=== PATIENT | male | born 1975 | race Caucasian/White ===

== ENCOUNTER 2020-10-17 12:38 | Emergency (ER) | payer OTHER ==
[2020-10-17] MEDS ORDERED: TYLENOL 325 MG PO ONE (13:00)
[2020-10-17] MEDS ORDERED: Sodium Chloride 0.9% 1000 ML 1,000 ML IV STA (13:00)
[2020-10-17] MEDS ORDERED: Inapsine 5 MG/2 ML IV ONE (13:00)
[2020-10-17] MEDS ORDERED: BENADRYL 50 MG/ML IV ONE (13:00)
[2020-10-17] MEDS ORDERED: Reglan 10 MG/2 ML IV ONE (13:00)
[2020-10-17] MEDS ORDERED: Inapsine 5 MG/2 ML ONE (13:06)
[2020-10-17] MEDS ORDERED: Sodium Chloride 0.9% 1000 ML 1,000 ML ONE (13:06)
[2020-10-17] MEDS ORDERED: Reglan 10 MG/2 ML ONE (13:06)
[2020-10-17] MEDS ORDERED: TYLENOL 325 MG ONE (13:06)
[2020-10-17] MEDS ORDERED: BENADRYL 50 MG/ML ONE (13:06)
[2020-10-17 13:47] LABS: Hematocrit 46.6 % (42-50); Mean Cell Volume 87.9 fl (78-100); Mean Corpuscular Hemoglobin 30.2 pg (26-32); Mean Corpuscular Hgb Concent. 34.3 g/dl (32-36); Mean Platelet Volume 9.6 fl (7.5-11.0); Platelet Count 229 K/mm3 (150-450); White Blood Count 7.8 K/mm3 (4.0-10.5)
--- NOTE | 2020-10-17 13:56 | XRAY ---
Indication: Cough. Comparison: None Portable chest demonstrates moderate left perihilar and minimal right perihilar airspace disease without consolidation/large effusion. Remaining heart and bony thorax normal.
--- NOTE | 2020-10-17 14:01 | ERPHSYRPT ---
- History of Present Illness Time Seen by Provider: 10/17/20 12:41 Source: patient Exam Limitations: no limitations Patient Subjective Stated Complaint: pt here for headache and low grade fever, headache for a week,he was sent from [facility]. pt states he is sure he has c ovid 2 weeks ago,because hes son had it Triage Nursing Assessment: pt alert, walked in, resp easy, skin w/d/p. pt moaning out with pain. deneis any injury, Physician History: 45 years old fairly healthy male presented in the ER with chief complaint of headache along with generalized body aches, fatigue and tiredness for 2 weeks. Patient report he has a positive contact with known COVID-19 but has never been tested. He has been feeling horrible for the last 2 weeks and lately his headache is getting worse. Reports throbbing headache, moderate to severe intensity all over without any significant aggravating or relieving factors. Denies any visual disturbance, numbness tingling or focal weakness. Does have minimal nonproductive cough and occasionally gets short of breath with activity since start of his illness. Aches and pains all over with nausea at times. Patient reports not being tested for Covid before and today started to have low- grade fever as well. No difficulty movements of neck. Timing/Duration: week(s) (2), constant, gradual onset Severity: moderate Associated Symptoms: nausea, fever, headaches, weakness Allergies/Adverse Reactions: amoxicillin Allergy (Verified 10/17/20 12:52) Hx Influenza Vaccination/Date Given: No Hx Pneumococcal Vaccination/Date Given: No Immunizations Up to Date: Yes Travel Risk - International Travel Have you traveled outside of the country in past 3 weeks: No - Coronavirus Screening Are you exhibiting any of the following symptoms?: Yes Symptoms: Fever, Cough: New Onset, Headaches/Body Aches/Fatigue Close contact with a COVID-19 positive Pt in past 14-21 Days: Yes - Vaccine Status Have you recieved a Covid-19 vaccination: No - Review of Systems Constitutional: Fever, Fatigue, Weakness Eyes: No Symptoms Ears, Nose, & Throat: Nose Congestion Respiratory: Cough, Dyspnea, Wheezing Abdominal/Gastrointestinal: Nausea, Vomiting Genitourinary Symptoms: No Symptoms Musculoskeletal: Myalgias Skin: No Symptoms Neurological: Headache Psychological: No Symptoms Endocrine: No Symptoms Hematologic/Lymphatic: No Symptoms Immunological/Allergic: No Symptoms - Past Medical History Pertinent Past Medical History: No - Past Surgical History Past Surgical History: No - Social History Smoking Status: Former smoker Exposure to second hand smoke: No Drug Use: none Patient Lives Alone: No - Nursing Vital Signs Nursing Vital Signs: Initial Vital Signs Temperature 99.9 F 10/17/20 12:46 Pulse Rate 105 H 10/17/20 12:46 Respiratory Rate 18 10/17/20 12:46 Blood Pressure 156/91 10/17/20 12:46 O2 Sat by Pulse Oximetry 99 10/17/20 12:46 Pain Scale Pain Intensity 10 - Physical Exam General Appearance: no apparent distress, alert Eye Exam: PERRL/EOMI, eyes nml inspection Ears, Nose, Throat Exam: pharyngeal erythema Neck Exam: normal inspection, non-tender, supple, full range of motion, No meningismus Respiratory Exam: normal breath sounds, lungs clear Cardiovascular Exam: regular rate/rhythm, normal heart sounds Gastrointestinal/Abdomen Exam: soft, normal bowel sounds, No tenderness Back Exam: normal inspection, normal range of motion Extremity Exam: normal inspection, normal range of motion, pelvis stable Neurologic Exam: alert, oriented x 3, cooperative, power system electrical engineer II-XII nml as tested, normal mood/affect, nml cerebellar function, nml station & gait, sensation nml, No motor deficits, No sensory deficit Skin Exam: normal color SpO2 Interpretation: normal SpO2: 99 O2 Delivery: Room Air Ordered Tests: Active Orders 24 hr Category Date Time Status Founder And President STAT Care 10/17/20 13:01 Active IV Insertion STAT Care 10/17/20 13:00 Active IV Insertion STAT Care 10/17/20 13:03 Active CHEST 1 VIEW (PORTABLE) Stat Exams 10/17/20 13:46 Completed HEAD WITHOUT CONTRAST [CT] Stat Exams 10/17/20 13:01 Completed BLOOD CULTURE Stat Lab 10/17/20 13:15 Received CBC W DIFF Stat Lab 10/17/20 12:45 Completed CMP Stat Lab 10/17/20 12:45 Completed Lactic Acid Urgent Lab 10/17/20 13:00 Completed Manual Differential NC Stat Lab 10/17/20 12:45 Completed UA W/RFX UR CULTURE Stat Lab 10/17/20 14:41 Completed Medication Summary Discontinued Medications Generic Name Dose Route Start Last Admin Trade Name Freq PRN Reason Stop Dose Admin Acetaminophen 975 mg 10/17/20 13:00 10/17/20 13:16 Tylenol 325 Mg PO 10/17/20 13:01 975 mg STAT ONE Administration Acetaminophen Confirm 10/17/20 13:06 Tylenol 325 Mg Administered 10/17/20 13:07 Dose 975 mg .ROUTE .STK-MED ONE Dexamethasone Sodium Phosphate 6 mg 10/17/20 15:14 10/17/20 15:50 Decadron 10mg Inj. IV 10/17/20 15:15 6 mg STAT ONE Administration Dexamethasone Sodium Phosphate Confirm 10/17/20 15:48 Decadron 10mg Inj. Administered 10/17/20 15:49 Dose 10 mg .ROUTE .STK-MED ONE Diphenhydramine HCl 25 mg 10/17/20 13:00 10/17/20 13:14 Benadryl 50 Mg/Ml IV 10/17/20 13:01 25 mg STAT ONE Administration Diphenhydramine HCl Confirm 10/17/20 13:06 Benadryl 50 Mg/Ml Administered 10/17/20 13:07 Dose 50 mg .ROUTE .STK-MED ONE Droperidol 1.25 mg 10/17/20 13:00 10/17/20 13:10 Inapsine 5 Mg/2 Ml IV 10/17/20 13:01 1.25 mg STAT ONE Administration Droperidol Confirm 10/17/20 13:06 Inapsine 5 Mg/2 Ml Administered 10/17/20 13:07 Dose 5 mg .ROUTE .STK-MED ONE Sodium Chloride 1,000 mls @ 999 mls/hr 10/17/20 13:00 10/17/20 14:24 Sodium Chloride 0.9% 1000 Ml IV 10/17/20 14:00 Infused .Q1H1M STA Infusion Sodium Chloride Confirm 10/17/20 13:06 Sodium Chloride 0.9% 1000 Ml Administered 10/17/20 13:07 Dose 1,000 mls @ ud .ROUTE .STK-MED ONE Azithromycin 500 mg in 250 mls @ 250 mls/hr 10/17/20 15:13 10/17/20 16:35 Zithromax 500 Mg/ 250 Ml Nacl Premix IV 10/17/20 16:12 250 mls/hr STAT STA 250 mls/hr Administration Ceftriaxone Sodium/Dextrose 2 g in 50 mls @ 100 mls/hr 10/17/20 15:13 10/17/20 16:36 Rocephin 2 Gm-D5w 50ml Bag IV 10/17/20 15:42 Infused STAT STA Infusion Azithromycin Confirm 10/17/20 15:48 Zithromax 500 Mg/ 250 Ml Nacl Premix Administered 10/17/20 15:49 Dose 500 mg in 250 mls @ ud IV .STK-MED ONE Ceftriaxone Sodium/Dextrose Confirm 10/17/20 15:48 Rocephin 2 Gm-D5w 50ml Bag Administered 10/17/20 15:49 Dose 2 g in 50 mls @ ud IV .STK-MED ONE Metoclopramide HCl 10 mg 10/17/20 13:00 10/17/20 13:13 Reglan 10 Mg/2 Ml IV 10/17/20 13:01 10 mg STAT ONE Administration Metoclopramide HCl Confirm 10/17/20 13:06 Reglan 10 Mg/2 Ml Administered 10/17/20 13:07 Dose 10 mg .ROUTE .STK-MED ONE Lab/Rad Data: Laboratory Result Diagrams 10/17/20 12:45 10/17/20 12:45 Laboratory Results 10/17/20 10/17/20 10/17/20 Range/Units 14:41 13:00 12:45 WBC (4.0-10.5) K/mm3 RBC (4.1-5.6) M/mm3 Hgb (12.5-18.0) gm/dl Hct (42-50) % MCV (78-100) fl MCH (26-32) pg MCHC (32-36) g/dl RDW (11.5-14.0) % Plt Count (150-450) K/mm3 MPV (7.5-11.0) fl Absolute Granulocytes (1.4-6.9) Segmented Neutrophils (36.-66.) % Band Neutrophils (0.0-2.0) % Lymphocytes (Manual) (24-44) % Monocytes (Manual) (0.0-12.0) % Platelet Estimate (NORMAL) RBC Morphology Sodium 135 L (137-145) mmol/L Potassium 3.8 (3.5-5.1) mmol/L Chloride 100 (98-107) mmol/L Carbon Dioxide 22 (22-30) mmol/L Anion Gap 16.6 H (5-15) MEQ/L BUN 16 (9-20) mg/dL Creatinine 0.84 (0.66-1.25) mg/dL Estimated GFR > 60.0 ML/MIN Glucose 145 H (74-106) mg/dL Lactic Acid 1.6 (0.4-2.0) Calcium 8.9 (8.4-10.2) mg/dL Total Bilirubin 0.80 (0.2-1.3) mg/dL AST 49 (17-59) U/L ALT 59 H (0-50) U/L Alkaline Phosphatase 110 (38-126) U/L Serum Total Protein 7.5 (6.3-8.2) g/dL Albumin 4.1 (3.5-5.0) g/dL Urine Color YELLOW (YELLOW) Urine Appearance SLIGHTLY CLOUDY (CLEAR) Urine pH 5.0 (5-6) Ur Specific [place] 1.014 (1.005-1.025) Urine Protein 30 (Negative) Urine Ketones NEGATIVE (NEGATIVE) Urine Blood NEGATIVE (0-5) Bunny/ul Urine Nitrite NEGATIVE (NEGATIVE) Urine Bilirubin NEGATIVE (NEGATIVE) Urine Urobilinogen NEGATIVE (0-1) mg/dL Ur Leukocyte Esterase NEGATIVE (NEGATIVE) Urine WBC (Auto) 3-5 (0-5) /HPF Urine RBC (Auto) NONE (0-2) /HPF U Epithel Cells (Auto) NONE (FEW) /HPF Urine Bacteria (Auto) NONE SEEN (NEGATIVE) /HPF Urine Mucus (Auto) SLIGHT (NEGATIVE) /HPF Urine Culture Reflexed NO (NO) Urine Glucose NEGATIVE (NEGATIVE) mg/dL 10/17/20 Range/Units 12:45 WBC 7.8 (4.0-10.5) K/mm3 RBC 5.30 (4.1-5.6) M/mm3 Hgb 16.0 (12.5-18.0) gm/dl Hct 46.6 (42-50) % MCV 87.9 (78-100) fl MCH 30.2 (26-32) pg MCHC 34.3 (32-36) g/dl RDW 13.0 (11.5-14.0) % Plt Count 229 (150-450) K/mm3 MPV 9.6 (7.5-11.0) fl Absolute Granulocytes 5.98 (1.4-6.9) Segmented Neutrophils 72 H (36.-66.) % Band Neutrophils 5 H (0.0-2.0) % Lymphocytes (Manual) 16 L (24-44) % Monocytes (Manual) 7 (0.0-12.0) % Platelet Estimate NORMAL (NORMAL) RBC Morphology NORMAL Sodium (137-145) mmol/L Potassium (3.5-5.1) mmol/L Chloride (98-107) mmol/L Carbon Dioxide (22-30) mmol/L Anion Gap (5-15) MEQ/L BUN (9-20) mg/dL Creatinine (0.66-1.25) mg/dL Estimated GFR ML/MIN Glucose (74-106) mg/dL Lactic Acid (0.4-2.0) Calcium (8.4-10.2) mg/dL Total Bilirubin (0.2-1.3) mg/dL AST (17-59) U/L ALT (0-50) U/L Alkaline Phosphatase (38-126) U/L Serum Total Protein (6.3-8.2) g/dL Albumin (3.5-5.0) g/dL Urine Color (YELLOW) Urine Appearance (CLEAR) Urine pH (5-6) Ur Specific [place] (1.005-1.025) Urine Protein (Negative) Urine Ketones (NEGATIVE) Urine Blood (0-5) Bunny/ul Urine Nitrite (NEGATIVE) Urine Bilirubin (NEGATIVE) Urine Urobilinogen (0-1) mg/dL Ur Leukocyte Esterase (NEGATIVE) Urine WBC (Auto) (0-5) /HPF Urine RBC (Auto) (0-2) /HPF U Epithel Cells (Auto) (FEW) /HPF Urine Bacteria (Auto) (NEGATIVE) /HPF Urine Mucus (Auto) (NEGATIVE) /HPF Urine Culture Reflexed (NO) Urine Glucose (NEGATIVE) mg/dL - Progress Progress: improved Progress Note: 10/17/20 15:20 Patient has nonfocal neuro exam throughout stay in the ER. With no history of headaches/migraines and worsening headache, have obtained CT head which is negative. No nuchal rigidity or signs of meningismus. Lungs generally clear to auscultation but x-ray showed some perihilar airspace disease consistent with viral etiology. Is given a dose of antibiotics in here. He is also given fluid bolus and migraine cocktail, on reevaluation his headache is almost completely resolved. Work-up otherwise is grossly unremarkable. I will continue with Zithromax and inhaler along with steroids to go home. I believe his headache is part of the viral syndrome and supportive care is recommended. At current patient does not meet to be admitted and can be discharged with outpatient follow-up. Discussed signs symptoms of worsening needing return to ER which he seems understanding Counseled pt/family regarding: lab results, diagnosis, need for follow-up, rad results - Departure Departure Disposition: Home Clinical Impression: Viral syndrome Bilateral pneumonia Qualifiers: Pneumonia type: due to unspecified organism Lung location: unspecified part of lung Qualified Code(s): J18.9 - Pneumonia, unspecified organism Headache Qualifiers: Headache type: unspecified Headache chronicity pattern: unspecified pattern Intractability: not intractable Qualified Code(s): R51.9 - Headache, unspecified Condition: Stable Critical Care Time: No Referrals: DOCTOR,NO FAMILY [Primary Care Provider] - ADDIE LONGORIA MD [ACTIVE STAFF] - Follow Up with PCP/3 days Instructions: Pneumonia, Adult (DC), Headache, Adult (DC) Additional Instructions: Keep yourself well-hydrated. Take Tylenol as needed. Use inhaler as needed. Continue with antibiotics and steroid. Follow-up with primary care for reevalu ation early next week. Return to ER for worsening fever chills, difficulty breathing etc. Prescriptions: Dexamethasone [Decadron] 6 mg PO DAILY #5 tablet Albuterol 8 gm Mdi Hfa [Ventolin Hfa MDI] 8 gm IH Q4H #1 gm Azithromycin 250 mg [Zithromax 250 MG TABLET] 250 mg PO DAILY #4 tablet
[2020-10-17 14:04] LABS: BAND 5 % (0.0-2.0); Neutrophils 72 % (36.-66.); Platelet Estimate NORMAL (NORMAL); Total Cells Counted 100
[2020-10-17 14:05] LABS: Lymphocytes 16 % (24-44); Monocyte 7 % (0.0-12.0)
[2020-10-17 14:07] LABS: Absolute Neutrophil Ct (ANC) 5.98 (1.4-6.9)
--- NOTE | 2020-10-17 14:11 | XRAY ---
Indication: Headache. Multiple contiguous axial images obtained through the head without contrast. Comparison: None Normal appearing brain parenchyma, ventricles, and bony calvarium. Visualized paranasal sinuses and mastoid air cells are clear. Impression: Normal CT head without contrast exam.
[2020-10-17 14:55] LABS: Appearance SLIGHTLY CLOUDY (CLEAR); Bilirubin NEGATIVE (NEGATIVE); Blood NEGATIVE Ery/ul (0-5); Glucose NEGATIVE (NEGATIVE); Ketones NEGATIVE (NEGATIVE); Leukocyte Esterase NEGATIVE (NEGATIVE); Mucus SLIGHT /HPF (NEGATIVE); Nitrite NEGATIVE (NEGATIVE); Protein,Urine Dip 30 (Negative); Specific Gravity 1.014 (1.005-1.025); Urobilinogen NEGATIVE mg/dL (0-1)
[2020-10-17 15:00] LABS: Bacteria NONE SEEN /HPF (NEGATIVE)
[2020-10-17] MEDS ORDERED: Zithromax 500 MG/ 250 ML NaCl Premix 500 MG/250 ML IVPB IV STA (15:13)
[2020-10-17] MEDS ORDERED: ROCEPHIN 2 Gm-D5w 50ML BAG** 2 G/50 ML IVPB IV STA (15:13)
[2020-10-17] MEDS ORDERED: DECADRON 10MG INJ. IV ONE (15:14)
[2020-10-17] MEDS ORDERED: DECADRON 10MG INJ. ONE (15:48)
[2020-10-17] MEDS ORDERED: ROCEPHIN 2 Gm-D5w 50ML BAG** 2 G/50 ML IVPB IV ONE (15:48)
[2020-10-17] MEDS ORDERED: Zithromax 500 MG/ 250 ML NaCl Premix 500 MG/250 ML IVPB IV ONE (15:48)
[2020-10-17 16:05] LABS: ALBUMIN 4.1 g/dL (3.5-5.0); ALKALINE PHOSPHATASE 110 U/L (38-126); ANION GAP 16.6 MEQ/L (5-15); BLOOD UREA NITROGEN 16 mg/dL (9-20); CHLORIDE 100 mmol/L (98-107); Calcium 8.9 mg/dL (8.4-10.2); Carbon Dioxide 22 mmol/L (22-30); Creatinine 1 0.84 mg/dL (0.66-1.25); EST GLOMERULAR FILTRATION RATE > 60.0 ML/MIN; Glucose 145 mg/dL (74-106); Potassium 3.8 mmol/L (3.5-5.1); SGOT/AST 49 U/L (17-59); SGPT/ALT 59 U/L (0-50); SODIUM 135 mmol/L (137-145); Total Protein 7.5 g/dL (6.3-8.2)
[2020-10-17 17:53] VITALS: BP 135/84; PULSE 100; O2SAT 98
== END 2020-10-17 17:52 | disposition home or self-care (01) ==
LOC: ED 12:38
DX: B34.9 Viral infection, unspecified (principal); J18.9 Pneumonia, unspecified organism; R51.9 Headache, unspecified
CPT/HCPCS: 36000; 36415; 70450; 71045; 80053; 81001; 83605; 85025; 87040; 93041; 96360; 96365; 96367; 96374; 96375; 99285; U0003; J0456; J0696; J1100; J1200; A9270-GY

== ENCOUNTER 2023-01-09 14:57 | Emergency (ER) | payer BC, OTHER ==
[2023-01-09 15:21] VITALS: BP 142/81; PULSE 79; TEMP 97.6; O2SAT 98
--- NOTE | 2023-01-09 15:45 | ERPHSYRPT ---
- History of Present Illness Time Seen by Provider: 01/09/23 15:15 Patient Subjective Stated Complaint: Pt states that he usually has soft bowels but recently he has gotten constipated and his abdomen gets severely distended, he has cleaned himself out a couple of times but he can't get his bowels working on their own Triage Nursing Assessment: Pt brought to the ER by his , hypertensive, den ies pain at this time, pulses normal, skin n/w/d, denies pain to abdomen with palpatation, abdomen is distended and rigid, bowel sounds heard in all 4 quadrants, last bowel movement was yesterday but it was not formed or much in quantity, denies red or black stools Physician History: d 47 years old male with past medical history of hypertension presenting to the emergency room with a chief complaint of abdominal distention, concerned that he might be having a bowel obstruction. The patient has been having chronic habitual constipation for many months. He has to take laxatives to help with his bowel movements. Last week he took mag citrate and had a loose bowel movements and good cleansing of his intestines. Lately has been taking MiraLAX and having small bowel movements his who is a nurse is concerned that he might be having a bowel obstruction?. The patient has no nausea or vomiting. He has minimal abdominal pressure-like pain. He is denying any urinary symptoms, no bleeding per rectum Allergies/Adverse Reactions: amoxicillin Allergy (Verified 01/09/23 15:21) Home Medications: Famotidine 10 mg PO DAILY 01/09/23 [History] Lisinopril 20 mg [Zestril 20 MG] 20 mg PO DAILY 01/09/23 [History] Metoprolol Succinate 50 mg [Toprol Xl 50 MG] 50 mg PO DAILY 01/09/23 [History] Hx Influenza Vaccination/Date Given: No Hx Pneumococcal Vaccination/Date Given: No Travel Risk - International Travel Have you traveled outside of the country in past 3 weeks: No - Coronavirus Screening Are you exhibiting any of the following symptoms?: No Close contact with a COVID-19 positive Pt in past 14-21 Days: No - Vaccine Status Have you recieved a Covid-19 vaccination: No - Review of Systems Constitutional: No Fever, No Chills Eyes: No Symptoms Ears, Nose, & Throat: No Symptoms Respiratory: No Cough, No Dyspnea Cardiac: No Chest Pain, No Edema, No Syncope Abdominal/Gastrointestinal: Abdominal Pain, Constipation, Other (Abdominal distention), No Nausea, No Vomiting, No Diarrhea Genitourinary Symptoms: No Dysuria Musculoskeletal: No Back Pain, No Neck Pain Skin: No Rash Neurological: No Dizziness, No Focal Weakness, No Sensory Changes Psychological: No Symptoms Endocrine: No Symptoms All Other Systems: Reviewed and Negative - Past Medical History Pertinent Past Medical History: Yes Cardiac History: Hypertension - Past Surgical History Past Surgical History: No - Social History Smoking Status: Former smoker Exposure to second hand smoke: No Drug Use: none Patient Lives Alone: No - Nursing Vital Signs Nursing Vital Signs: Initial Vital Signs Temperature 97.6 F 01/09/23 15:10 Pulse Rate 79 01/09/23 15:10 Blood Pressure 142/81 01/09/23 15:10 O2 Sat by Pulse Oximetry 98 01/09/23 15:10 Pain Scale Pain Intensity 0 - Physical Exam General Appearance: no apparent distress, alert Eye Exam: PERRL/EOMI, eyes nml inspection Ears, Nose, Throat Exam: normal ENT inspection, pharynx normal, moist mucous membranes Neck Exam: normal inspection, non-tender, supple, full range of motion Respiratory Exam: normal breath sounds, lungs clear, No respiratory distress Cardiovascular Exam: regular rate/rhythm, normal heart sounds Gastrointestinal/Abdomen Exam: soft, normal bowel sounds (Tympanic Percussion.), distention, No tenderness, No mass, No guarding, No ecchymosis, No rebound, No hernia Back Exam: normal inspection, normal range of motion, No CVA tenderness, No vertebral tenderness Extremity Exam: normal inspection, normal range of motion, pelvis stable Neurologic Exam: alert, oriented x 3, cooperative, normal mood/affect, nml cerebellar function, sensation nml, No motor deficits Skin Exam: normal color, warm, dry SpO2: 98 Ordered Tests: Active Orders 24 hr Category Date Time Status OBSTR/ACUTE ABDOMEN SERIES Stat Exams 01/09/23 16:22 Taken CBC W DIFF Stat Lab 01/09/23 15:45 Completed CMP Stat Lab 01/09/23 15:45 Completed LIPASE Stat Lab 01/09/23 15:45 Completed UA W/RFX UR CULTURE Stat Lab 01/09/23 15:48 Completed Lab/Rad Data: Laboratory Result Diagrams 01/09/23 15:45 01/09/23 15:45 Laboratory Results 01/09/23 01/09/23 01/09/23 Range/Units 15:48 15:45 15:45 WBC 7.7 (4.0-10.5) x10^3/uL RBC 5.15 (4.1-5.6) x10^6/uL Hgb 15.9 (12.5-18.0) g/dL Hct 46.3 (42-50) % MCV 89.9 (78-100) fL MCH 30.9 (26-32) pg MCHC 34.3 (32-36) g/dL RDW 12.0 (11.5-14.0) % Plt Count 285 (150-450) x10^3/uL MPV 8.8 (7.5-11.0) fL Gran % 68.2 H (36.0-66.0) % Immature Gran % (Auto) 0.3 (0.00-0.4) % Nucleat RBC Rel Count 0.0 (0.00-0.1) % Eos # (Auto) 0.12 (0-0.5) x10^3/uL Immature Gran # (Auto) 0.02 (0.00-0.03) x10^3u/L Absolute Lymphs (auto) 1.76 (1.0-4.6) x10^3/uL Absolute Monos (auto) 0.51 (0.0-1.3) x10^3/uL Absolute Nucleated RBC 0.00 (0.00-0.01) x10^3u/L Lymphocytes % 22.7 L (24.0-44.0) % Monocytes % 6.6 (0.0-12.0) % Eosinophils % 1.6 (0.00-5.0) % Basophils % 0.6 (0.0-0.4) % Absolute Granulocytes 5.28 (1.4-6.9) x10^3/uL Basophils # 0.05 (0-0.4) x10^3/uL Sodium 140 (137-145) mmol/L Potassium 3.9 (3.5-5.1) mmol/L Chloride 107 (98-107) mmol/L Carbon Dioxide 24 (22-30) mmol/L Anion Gap 12.9 (5-15) MEQ/L BUN 15 (9-20) mg/dL Creatinine 0.89 (0.66-1.25) mg/dL Estimated GFR 106.4 ML/MIN Glucose 133 H (74-106) mg/dL Calcium 9.2 (8.4-10.2) mg/dL Total Bilirubin 0.70 (0.2-1.3) mg/dL AST 22 (17-59) U/L ALT 39 (0-50) U/L Alkaline Phosphatase 73 (38-126) U/L Serum Total Protein 7.6 (6.3-8.2) g/dL Albumin 4.3 (3.5-5.0) g/dL Lipase 139 (23-300) U/L Urine Color Yellow (Yellow) Urine Appearance Clear (Clear) Urine pH 5.0 (4.6-8.0) Ur Specific [place] 1.025 (1.005-1.030) Urine Protein Negative (Negative) Urine Glucose (UA) Negative (Negative) mg/dL Urine Ketones Negative (Negative) Urine Blood Negative (Negative) Urine Nitrite Negative (Negative) Urine Bilirubin Negative (Negative) Urine Urobilinogen 0.2 (0.2) mg/dL Ur Leukocyte Esterase Negative (Negative) U Hyaline Cast (Auto) 3-5 A (0-2) /LPF Urine Microscopic RBC 0-2 (0-5) /HPF Urine Microscopic WBC 0-2 (0-5) /HPF Ur Epithelial Cells None Seen (None Seen) /HPF Urine Bacteria None Seen (None Seen) /HPF Urine Culture Reflexed NO (NO) - Progress Progress Note: 47 years old male with past medical history of hypertension presenting to the emergency room with a chief complaint of abdominal distention, concerned that he might be having a bowel obstruction. The patient has been having chronic habitual constipation for many months. He has to take laxatives to help with his bowel movements. Last week he took mag citrate and had loose bowel movements and good cleansing of his intestines. Lately has been taking MiraLAX and having small bowel movements his who is a nurse is concerned that he might be having a bowel obstruction?. The patient has no nausea or vomiting. He has minimal abdominal pressure-like pain. He is denying any urinary symptoms, no bleeding per rectum. He had a Colonoscopy at [facility] in 2018, which was normal. Emergency room course and medical decision making The patient wants a peace of mind although my suspicion for bowel obstruction is very small. Will check a CBC, CMP, lipase, obstructive series of abdomen pain 01/09/23 15:43 01/09/23 17:36 The patient's workup is essentially negative, x-rays abdominal series reveals no free air, no air-fluid levels, high burden of stool. Both CBC CMP UA are within normal limits. The patient will be discharged home. He is advised to eat healthy high-fiber diet Increase his fluid intake. Avoid stress and relax. MiraLAX to be taken on a daily basis for bowel regulation. 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
[2023-01-09 15:58] LABS: Absolute Neutrophil Ct (ANC) 5.28 x10^3/uL (1.4-6.9); BASOPHIL % 0.6 % (0.0-0.4); Basophil (Absolute #) 0.05 x10^3/uL (0-0.4); Eosinophil % 1.6 % (0.00-5.0); Eosinophil (Absolute #) 0.12 x10^3/uL (0-0.5); Hematocrit 46.3 % (42-50); Hemoglobin 15.9 g/dL (12.5-18.0); IMMATURE GRAN # 0.02 x10^3u/L (0.00-0.03); IMMATURE GRAN % 0.3 % (0.00-0.4); Lymphocyte (Absolute #) 1.76 x10^3/uL (1.0-4.6); Lymphocytes % 22.7 % (24.0-44.0); Mean Cell Volume 89.9 fL (78-100); Mean Corpuscular Hemoglobin 30.9 pg (26-32); Mean Corpuscular Hgb Concent. 34.3 g/dL (32-36); Mean Platelet Volume 8.8 fL (7.5-11.0); Monocyte (Absolute #) 0.51 x10^3/uL (0.0-1.3); Monocytes % 6.6 % (0.0-12.0); Neutrophil % 68.2 % (36.0-66.0); Platelet Count 285 x10^3/uL (150-450); Red Blood Count 5.15 x10^6/uL (4.1-5.6); White Blood Count 7.7 x10^3/uL (4.0-10.5)
[2023-01-09 16:04] LABS: Appearance Clear (Clear); Bacteria None Seen /HPF (None Seen); Bilirubin Negative (Negative); Blood Negative (Negative); Epithelial Cells None Seen /HPF (None Seen); Glucose, Urine Negative (Negative); Ketones Negative (Negative); Leukocyte Esterase Negative (Negative); Nitrite Negative (Negative); Protein,Urine Dip Negative (Negative); RBC 0-2 /HPF (0-5); Specific Gravity 1.025 (1.005-1.030); Urobilinogen 0.2 mg/dL (0.2); WBC 0-2 /HPF (0-5)
[2023-01-09 16:08] LABS: ADD URINE CULTURE? NO (NO)
[2023-01-09 16:11] LABS: ALBUMIN 4.3 g/dL (3.5-5.0); ANION GAP 12.9 MEQ/L (5-15); BILIRUBIN,TOTAL 0.7 mg/dL (0.2-1.3); Calcium 9.2 mg/dL (8.4-10.2); Creatinine 1 0.89 mg/dL (0.66-1.25); EST GLOMERULAR FILTRATION RATE 106.4 ML/MIN; Potassium 3.9 mmol/L (3.5-5.1); Total Protein 7.6 g/dL (6.3-8.2)
--- NOTE | 2023-01-09 21:23 | XRAY ---
Indication: Small bowel obstruction. Constipation. Comparison: Chest exam March 25, 2021. 2 view abdomen nonacute and nonobstructed with mild scattered fecal debris in right hemicolon and rectum. Solid organs and osseous structures unremarkable. Single PA chest again demonstrates normal heart, lungs, and bony thorax.
== END 2023-01-09 17:46 | disposition home or self-care (01) ==
LOC: ED 14:57
DX: K58.1 Irritable bowel syndrome with constipation (principal); R14.0 Abdominal distension (gaseous); I10 Essential (primary) hypertension; Z79.899 Other long term (current) drug therapy; Z28.310 Unvaccinated for COVID-19
CPT/HCPCS: 36415; 74022; 80053; 81001; 83690; 85025; 99283

== ENCOUNTER 2024-03-24 11:16 | Observation (INO) | payer BC, OTHER ==
[2024-03-24] MEDS: BABY ASPIRIN 81 MG CHEW PO ONE (11:56)
[2024-03-24] MEDS ORDERED: BABY ASPIRIN 81 MG CHEW ONE (11:56)
--- NOTE | 2024-03-24 12:08 | ERPHSYRPT ---
- History of Present Illness Time Seen by Provider: 03/24/24 11:23 Historian: patient Exam Limitations: no limitations Patient Subjective Stated Complaint: Bradycardia Triage Nursing Assessment: Patient ambulated back to ED and transferred self to bed. Patient A+O X 3. Patient's skin pink, warm and dry. Patient states last night at work he started feeling lightheaded and checked his heart rate it was 34. Patient states he left work and went to sleep and woke up still feeling lightheaded and checked heart rate, which was 47. Patient states he has occasional chest discomfort 2/10 with some nausea. Physician History: 49-year-old male with history of hypertension presented in the ER with complains of bradycardia, intermittent chest pains and feeling dizzy and lightheadedness since yesterday. Patient reports his heart rate is dropping in 30s and it happened last night and this morning prior to arrival as well. Patient reports feeling lightheaded when ever his heart rate drops. Has minimal chest discomfort off-and-on since yesterday, denies any fever chills cough or difficulty breathing. Aspirin Treatment Today: no aspirin today Allergies/Adverse Reactions: amoxicillin Allergy (Verified 03/24/24 11:31) Home Medications: Metoprolol Succinate 50 mg [Toprol Xl 50 MG] 50 mg PO DAILY 01/09/23 [History] Cefdinir [Omnicef 300 mg] 300 mg PO Q12H 03/24/24 [History] Lisinopril/Hydrochlorothiazide [Lisinopril-Hctz 20-25 mg Tab] 1 each PO DAILY 03/24/24 [History] Lumateperone Tosylate [Caplyta] 42 mg PO HS 03/24/24 [History] Pantoprazole 20 mg [Protonix 20MG Tablet] 20 mg PO DAILY 03/24/24 [History] Rosuvastatin Calcium 10 mg PO DAILY 03/24/24 [History] Tizanidine HCl 2 mg PO UD 03/24/24 [History] Hx Influenza Vaccination/Date Given: Yes Hx Pneumococcal Vaccination/Date Given: No Immunizations Up to Date: Yes Travel Risk - International Travel Have you traveled outside of the country in past 3 weeks: No - Emerging Infectious Disease Are you exhibiting symptoms associated with any current EIDs: No - Review of Systems Constitutional: No Symptoms Eyes: No Symptoms Ears, Nose, & Throat: No Symptoms, Throat Swelling Cardiac: Chest Pain, Palpitations Abdominal/Gastrointestinal: No Symptoms Genitourinary Symptoms: No Symptoms Musculoskeletal: No Symptoms Skin: No Symptoms Neurological: No Symptoms Endocrine: No Symptoms Hematologic/Lymphatic: No Symptoms - Past Medical History Pertinent Past Medical History: Yes Neurological History: No Pertinent History ENT History: No Pertinent History Cardiac History: High Cholesterol, Hypertension Respiratory History: No Pertinent History Endocrine Medical History: No Pertinent History Musculoskeletal History: No Pertinent History GI Medical History: GERD History: No Pertinent History Psycho-Social History: No Pertinent History Male Reproductive Disorders: No Pertinent History - Past Surgical History Past Surgical History: No Neuro Surgical History: No Pertinent History Cardiac: No Pertinent History Respiratory: No Pertinent History Gastrointestinal: No Pertinent History Genitourinary: No Pertinent History Musculoskeletal: No Pertinent History Male Surgical History: No Pertinent History - Social History Smoking Status: Former smoker Exposure to second hand smoke: No Drug Use: none Patient Lives Alone: No - Social Determinants of Health Will the patient participate in the screening: Yes Do you worry about a steady place to live?: No Do you have any problems with any of the following?: No known problems In the past 12 months,have you had to go without utilities?: No Transportation Issues: No Has anyone in your support network made you feel unsafe?: No Have you or anyone in your house had to go without enough: No - Nursing Vital Signs Nursing Vital Signs: Initial Vital Signs Temperature 96.7 F 03/24/24 11:33 Pulse Rate 64 03/24/24 11:33 Respiratory Rate 20 03/24/24 11:33 Blood Pressure 130/89 03/24/24 11:33 O2 Sat by Pulse Oximetry 97 03/24/24 11:33 Pain Scale Pain Intensity 0 - Physical Exam General Appearance: no apparent distress Eye Exam: PERRL/EOMI Ears, Nose, Throat Exam: normal ENT inspection Neck Exam: normal inspection, non-tender, supple, full range of motion Respiratory Exam: normal breath sounds, lungs clear Cardiovascular Exam: regular rate/rhythm, normal heart sounds Gastrointestinal/Abdomen Exam: soft, normal bowel sounds, No tenderness Back Exam: normal inspection, normal range of motion Extremity Exam: normal inspection Neurologic Exam: alert, oriented x 3, cooperative Skin Exam: normal color SpO2 Interpretation: normal SpO2: 97 O2 Delivery: Room Air - Course EKG Interpreted by Me: RATE (61), Sinus Rhythm, NORMAL AXIS, NORMAL INTERVALS, NORMAL QRS Ordered Tests: Active Orders 24 hr Category Date Time Status Senior Net Software Developer STAT Care 03/24/24 11:52 Active EKG-ER Only STAT Care 03/24/24 11:51 Active IV Insertion STAT Care 03/24/24 11:51 Active CHEST 1 VIEW (PORTABLE) Stat Exams 03/24/24 12:04 Taken CBC W DIFF Stat Lab 03/24/24 12:08 Completed CMP Stat Lab 03/24/24 12:08 Completed NT PRO BNPII Stat Lab 03/24/24 12:08 Completed TROPONIN Q4H Lab 03/24/24 12:08 Completed TROPONIN Q4H Lab 03/24/24 16:00 Ordered TROPONIN Q4H Lab 03/24/24 20:00 Ordered TSH, 3RD Generation Stat Lab 03/24/24 12:08 Completed Transfer Order Routine Transfer 03/24/24 Ordered Medication Summary Discontinued Medications Generic Name Dose Route Start Last Admin Trade Name Filiberto PRN Reason Stop Dose Admin Aspirin 324 mg 03/24/24 11:51 03/24/24 11:56 Aspirin 81 Mg Tab.Chew PO 03/24/24 11:52 324 mg STAT ONE Administration Aspirin Confirm 03/24/24 11:56 Aspirin 81 Mg Tab.Chew Administered 03/24/24 11:57 Dose 324 mg .ROUTE .STK-MED ONE Lab/Rad Data: Laboratory Result Diagrams 03/24/24 12:08 03/24/24 12:08 Laboratory Results 03/24/24 03/24/24 03/24/24 Range/Units 12:08 12:08 12:08 WBC 6.9 (4.23-9.07) x10^3/uL RBC 4.93 (4.63-6.08) x10^6/uL Hgb 15.4 (13.7-17.5) g/dL Hct 42.4 (40.1-51.0) % MCV 86.0 (79.0-92.2) fL MCH 31.2 (25.7-32.2) pg MCHC 36.3 (32.3-36.5) g/dL RDW 12.0 (11.6-14.4) % Plt Count 259 (163-337) x10^3/uL MPV 9.1 L (9.4-12.4) fL Gran % 64.2 (34.0-67.9) % Immature Gran % (Auto) 0.3 (0.001-0.429) % Nucleat RBC Rel Count 0.0 (0.00-0.2) % Eos # (Auto) 0.12 (0.04-0.54) x10^3/uL Immature Gran # (Auto) 0.02 (0.001-0.031) x10^3u/L Absolute Lymphs (auto) 1.66 (1.32-3.57) x10^3/uL Absolute Monos (auto) 0.63 (0.30-0.82) x10^3/uL Absolute Nucleated RBC 0.00 (0.00-0.012) x10^3u/L Lymphocytes % 24.1 (21.8-53.1) % Monocytes % 9.1 (5.3-12.2) % Eosinophils % 1.7 (0.8-7.0) % Basophils % 0.6 (0.2-1.2) % Absolute Granulocytes 4.43 (1.78-5.38) x10^3/uL Basophils # 0.04 (0.01-0.08) x10^3/uL Sodium 140 (135-145) mmol/L Potassium 3.8 (3.5-5.1) mmol/L Chloride 106 (98-107) mmol/L Carbon Dioxide 26 (22-30) mmol/L Anion Gap 11.6 (5-15) MEQ/L BUN 21 H (9-20) mg/dL Creatinine 0.95 (0.66-1.25) mg/dL Estimated GFR 98.1 ML/MIN Glucose 103 (74-106) mg/dL Calcium 9.0 (8.4-10.2) mg/dL Total Bilirubin 1.40 H (0.2-1.3) mg/dL AST 35 (17-59) U/L ALT 37 (0-50) U/L Alkaline Phosphatase 74 (38-126) U/L Troponin I < 0.012 (0.000-0.033) ng/mL NT-Pro-B Natriuret Pep 41.5 (<300) pg/mL Serum Total Protein 7.6 (6.3-8.2) g/dL Albumin 4.6 (3.5-5.0) g/dL TSH 3rd Generation 1.139 (0.470-4.680) mIU/L - Progress Progress: unchanged Air Movement: good Progress Note: 03/24/24 14:28 49-year-old with history of hypertension is evaluated in the ER for intermittent chest pain since yesterday and also having bradycardia with dizziness/lightheadedness. Patient does not have any chest pain at present. EKG is normal sinus rhythm with no acute ischemic changes. Chest x-ray is negative for any acute cardiopulmonary findings. Normal white count, fairly unremarkable chemistries., Negative troponin. Given aspirin. While in the ER patient has occasional PVCs. Patient has been taking metoprolol 50 mg and I believe patient needs adjustment in dosage of his medication and also monitoring or telemetry along with trending of cardiac enzymes. I have shared the results of workup with patient and family and recommended observation admission which they understand and agree. I have discussed with Dr. Esvin ramos and patient is being admitted to hospitalist service. Blood Culture(s) Obtained: No Antibiotics given: No Discussed with Dr.: Other (Dr. Mcallister hospitalist) Will see patient in: hospital (observation) Counseled pt/family regarding: lab results, diagnosis, need for follow-up, rad results Medical Desision Making - Independent Historian Additional History obtained from: Spouse - Discussion of managment Care discussed with:: hospitalist Reviewed:: Test results Agreed on:: Treatment plan, place in obs Will see patient: in hospital - Diagnostic Testing Diagnostic test were ordered, analyzed, and reviewed by me: Yes Radiological Interpretation: Reviewed by me - Risk of complications The pt has a mod risk of morbidity or mortality based on: Need for prescription drug management The pt has a high risk of morbidity or mortality based on: Decision regarding hospitilization or escalation of hosp level of care - Departure Departure Disposition: Observation Clinical Impression: Symptomatic bradycardia, Chest pain Condition: Stable Critical Care Time: No Referrals: AMERICO VILLAFANA, [Primary Care Provider] - Follow up/PCP as directed
[2024-03-24 12:09] LABS: Absolute Neutrophil Ct (ANC) 4.43 x10^3/uL (1.78-5.38); BASOPHIL % 0.6 % (0.2-1.2); Basophil (Absolute #) 0.04 x10^3/uL (0.01-0.08); Eosinophil % 1.7 % (0.8-7.0); Eosinophil (Absolute #) 0.12 x10^3/uL (0.04-0.54); Hematocrit 42.4 % (40.1-51.0); Hemoglobin 15.4 g/dL (13.7-17.5); IMMATURE GRAN # 0.02 x10^3u/L (0.001-0.031); IMMATURE GRAN % 0.3 % (0.001-0.429); Lymphocyte (Absolute #) 1.66 x10^3/uL (1.32-3.57); Lymphocytes % 24.1 % (21.8-53.1); Mean Corpuscular Hemoglobin 31.2 pg (25.7-32.2); Mean Corpuscular Hgb Concent. 36.3 g/dL (32.3-36.5); Mean Platelet Volume 9.1 fL (9.4-12.4); Monocyte (Absolute #) 0.63 x10^3/uL (0.30-0.82); Monocytes % 9.1 % (5.3-12.2); Neutrophil % 64.2 % (34.0-67.9); Platelet Count 259 x10^3/uL (163-337); Red Blood Count 4.93 x10^6/uL (4.63-6.08); White Blood Count 6.9 x10^3/uL (4.23-9.07)
[2024-03-24 13:01] LABS: ALBUMIN 4.6 g/dL (3.5-5.0); ANION GAP 11.6 MEQ/L (5-15); BILIRUBIN,TOTAL 1.4 mg/dL (0.2-1.3); Creatinine 1 0.95 mg/dL (0.66-1.25); EST GLOMERULAR FILTRATION RATE 98.1 ML/MIN; NT PRO BNPII 41.5 pg/mL (<300); Potassium 3.8 mmol/L (3.5-5.1); TSH, 3RD Generation 1.139 mIU/L (0.470-4.680); Total Protein 7.6 g/dL (6.3-8.2)
--- NOTE | 2024-03-24 16:22 | PCM.HP ---
History of Present Illness - Chief Complaint Chief Complaint: Symptomatic bradycardia/chest pain Date: 03/24/24 History of Present Illness: Mr. Peter is a 49 year old male with multiple cardiovascular risk factor including hypertension, hyperlipidemia, and obesity (BMI > 30) who presented to ED 03/24/24 with complaints of dizziness, intermittent chest discomfort, and bradycardia with HR reported in the 30s at home. Patient states that symptoms began at work when he began to feel dizzy and felt like "I had a Raghavendra Horse in my heart." He has been having recent issues with his blood pressure reaching 180's/120's and has been started on several new medications in addition to his metoprolol that he has been on for several years including HCTZ and clonidine. He decided to take his BP at work due to his symptoms and noticed his HR was in the 30's. He went home from work and was still experiencing symptoms and his who is a nurse took a manual pulse and it was in the 40's. Chest discomfort is substernal with no radiation. Sharp, knife-like pain, moderate intensity and intermittent. No relieving/aggravating factors. Associated shortness of breath and nausea. Additional medical history includes GERD, IBS, anxiety, and depression. Patient states parents in their 40's from heart disease. Upon arrival to ED, vitals stable. HR noted at 64. EKG -RATE (61), Sinus Rhythm, NORMAL AXIS, NORMAL INTERVALS, NORMAL QRS. Lab findings unremarkable. Patient given aspirin in ED. PVCs reported on tele. - Review of Systems Constitutional: No Symptoms Eyes: No Symptoms Ears, Nose, & Throat: No Symptoms Respiratory: Short Of Breath Cardiac: Chest Pain Abdominal/Gastrointestinal: Nausea Genitourinary Symptoms: No Symptoms Musculoskeletal: No Symptoms Skin: No Symptoms Neurological: Dizziness Psychological: Anxiety, Depression Endocrine: No Symptoms Hematologic/Lymphatic: No Symptoms Immunological/Allergic: No Symptoms Medications & Allergies Home Medications: Home Medication List Metoprolol Succinate 50 mg [Toprol Xl 50 MG] 50 mg PO DAILY 01/09/23 [History Confirmed 03/24/24] Cefdinir [Omnicef 300 mg] 300 mg PO Q12H 03/24/24 [History Confirmed 03/24/24] Lisinopril/Hydrochlorothiazide [Lisinopril-Hctz 20-25 mg Tab] 1 each PO DAILY 03/24/24 [History Confirmed 03/24/24] Lumateperone Tosylate [Caplyta] 42 mg PO HS 03/24/24 [History Confirmed 03/24/24] Pantoprazole 20 mg [Protonix 20MG Tablet] 20 mg PO DAILY 03/24/24 [History Confirmed 03/24/24] Rosuvastatin Calcium 10 mg PO DAILY 03/24/24 [History Confirmed 03/24/24] Tizanidine HCl 2 mg PO UD 03/24/24 [History Confirmed 03/24/24] Allergies/Adverse Reactions: Allergies Allergy/AdvReac Type Severity Reaction Status Date / Time amoxicillin Allergy Verified 03/24/24 16:02 - Past Medical History Past Medical History: Yes Neurological History: No Pertinent History ENT History: No Pertinent History Cardiac History: High Cholesterol, Hypertension Respiratory History: No Pertinent History Endocrine Medical History: No Pertinent History Musculoskelatal History: No Pertinent History GI Medical History: GERD, Irritable Bowel History: No Pertinent History Pyscho-Social History: Anxiety, Depression Male Reproductive Disorders: No Pertinent History - Past Surgical History Past Surgical History: No Neuro Surgical History: No Pertinent History Cardiac History: No Pertinent History Respiratory Surgery: No Pertinent History GI Surgical History: No Pertinent History Genitourinary Surgical Hx: No Pertinent History Musculskeletal Surgical Hx: No Pertinent History Male Surgical History: No Pertinent History Significant Family History: heart disease, cancer, stroke - Social History Smoking Status: Former smoker Exposure to second hand smoke: No Alcohol: Occasionally Drug Use: none - Social Determinants of Health Will the patient participate in the screening: Yes Do you worry about a steady place to live?: No Do you have any problems with any of the following?: No known problems In the past 12 months,have you had to go without utilities?: No Have you or anyone in your house had to go without enough: No Transportation Issues: No Has anyone in your support network made you feel unsafe?: No - Physical Exam Vital Signs: Vital Signs - 24 hr Temp Pulse Resp BP BP Pulse Ox 03/24/24 15:12 97 03/24/24 15:00 65 18 133/87 98 03/24/24 14:30 63 16 137/84 96 03/24/24 14:00 63 11 L 148/99 99 03/24/24 13:30 71 16 135/92 99 03/24/24 13:00 62 14 141/80 96 03/24/24 12:30 57 L 13 130/88 95 03/24/24 12:04 64 13 136/92 98 03/24/24 11:41 120/86 96 03/24/24 11:40 68 10 L 136/98 98 03/24/24 11:39 75 10 L 129/82 98 03/24/24 11:33 96.7 F 66 19 130/89 130/89 98 General Appearance: no apparent distress Neurologic Exam: alert, oriented x 3, cooperative Eye Exam: PERRL/EOMI Ears, Nose, Throat Exam: normal ENT inspection Neck Exam: normal inspection Respiratory Exam: normal breath sounds, lungs clear Cardiovascular Exam: regular rate/rhythm, normal heart sounds Gastrointestinal/Abdomen Exam: soft, normal bowel sounds Rectal Exam: deferred Back Exam: normal inspection Extremity Exam: normal inspection Skin Exam: normal color Results - Labs Lab/Micro Results: Lab Results-Last 24 Hours 03/24/24 03/24/24 03/24/24 Range/Units 12:08 12:08 12:08 WBC 6.9 (4.23-9.07) x10^3/uL RBC 4.93 (4.63-6.08) x10^6/uL Hgb 15.4 (13.7-17.5) g/dL Hct 42.4 (40.1-51.0) % MCV 86.0 (79.0-92.2) fL MCH 31.2 (25.7-32.2) pg MCHC 36.3 (32.3-36.5) g/dL RDW 12.0 (11.6-14.4) % Plt Count 259 (163-337) x10^3/uL MPV 9.1 L (9.4-12.4) fL Gran % 64.2 (34.0-67.9) % Immature Gran % (Auto) 0.3 (0.001-0.429) % Nucleat RBC Rel Count 0.0 (0.00-0.2) % Eos # (Auto) 0.12 (0.04-0.54) x10^3/uL Immature Gran # (Auto) 0.02 (0.001-0.031) x10^3u/L Absolute Lymphs (auto) 1.66 (1.32-3.57) x10^3/uL Absolute Monos (auto) 0.63 (0.30-0.82) x10^3/uL Absolute Nucleated RBC 0.00 (0.00-0.012) x10^3u/L Lymphocytes % 24.1 (21.8-53.1) % Monocytes % 9.1 (5.3-12.2) % Eosinophils % 1.7 (0.8-7.0) % Basophils % 0.6 (0.2-1.2) % Absolute Granulocytes 4.43 (1.78-5.38) x10^3/uL Basophils # 0.04 (0.01-0.08) x10^3/uL Sodium 140 (135-145) mmol/L Potassium 3.8 (3.5-5.1) mmol/L Chloride 106 (98-107) mmol/L Carbon Dioxide 26 (22-30) mmol/L Anion Gap 11.6 (5-15) MEQ/L BUN 21 H (9-20) mg/dL Creatinine 0.95 (0.66-1.25) mg/dL Estimated GFR 98.1 ML/MIN Glucose 103 (74-106) mg/dL Calcium 9.0 (8.4-10.2) mg/dL Total Bilirubin 1.40 H (0.2-1.3) mg/dL AST 35 (17-59) U/L ALT 37 (0-50) U/L Alkaline Phosphatase 74 (38-126) U/L Troponin I < 0.012 (0.000-0.033) ng/mL NT-Pro-B Natriuret Pep 41.5 (<300) pg/mL Serum Total Protein 7.6 (6.3-8.2) g/dL Albumin 4.6 (3.5-5.0) g/dL TSH 3rd Generation 1.139 (0.470-4.680) mIU/L - Radiology Impressions Radiology Exams & Impressions: Radiology Procedures Category Date Time Status CHEST 1 VIEW (PORTABLE) Stat Exams 03/24/24 12:04 Taken Assessment/Plan (1) Symptomatic bradycardia Current Visit: Yes Status: Acute Assessment & Plan: -EKG reviewed on ER documentation -RATE (61), Sinus Rhythm, NORMAL AXIS, NORMAL INTERVALS, NORMAL QRS - repeat in the morning -Echo unavailable during the weekend -TSH WNL -HR WNL upon arrival -May need event monitor on discharge -CMP/CBC reviewed -unremarkable -Medications reviewed- patient on metoprolol/lisinopril for several years- recent addition of HCTZ and clonidine- will hold metoprolol/HCTZ/clonidine-may need dose adjustment -Cards consulted appreciate recs -Trops neg x 1-trend -Tele -UDS Code(s): R00.1 - BRADYCARDIA, UNSPECIFIED (2) Chest pain Current Visit: Yes Status: Acute Assessment & Plan: -ASA given in ED -EKG and trops x 1 unremarkable -Echo unavailable over the weekend - may need outpatient -Nitro -Ddimer -CXR negative for acute cardiopulmonary findings -tele -cardiology consulted Code(s): R07.9 - CHEST PAIN, UNSPECIFIED (3) GERD (gastroesophageal reflux disease) Current Visit: Yes Status: Acute Assessment & Plan: -continue protonix Code(s): K21.9 - GASTRO-ESOPHAGEAL REFLUX DISEASE WITHOUT ESOPHAGITIS (4) HTN (hypertension) Current Visit: Yes Status: Acute Assessment & Plan: -BP stable -Hold metoprolol/HCTZ/Clonidine for now - continue lisinopril -Monitor closely Code(s): I10 - ESSENTIAL (PRIMARY) HYPERTENSION (5) HLD (hyperlipidemia) Current Visit: Yes Status: Acute Assessment & Plan: -continue statin Code(s): E78.5 - HYPERLIPIDEMIA, UNSPECIFIED (6) Anxiety and depression Current Visit: Yes Status: Acute Assessment & Plan: -Continue Caplyta Code(s): F41.9 - ANXIETY DISORDER, UNSPECIFIED; F32.A - DEPRESSION, UNSPECIFIED (7) Irritable bowel syndrome (IBS) Current Visit: No Status: Acute Assessment & Plan: -Noted -no current issue VTE: Lovenox PPI: protonix Dispo: 1-2 days Code: Full Telemedicine Encounter - Telemedicine Encounter Telemedicine Encounter: "The entirety of this encounter was performed via Telemedicine" This visit was performed using real-time audio and video connection between my location and thepatients locationwith the assistance of a surrogateat the patients location. Written or verbal consent was obtained from the patient/guardian to perform this visit usingnchronoustelemedicine technology. Any patient questions regarding the telemedicine interaction were answered.
[2024-03-24] MEDS ORDERED: Zofran 4 MG/2 ML VIAL IV PRN (16:30)
[2024-03-24] MEDS ORDERED: NON-FORMULARY ITEM (Tizanidine Hcl [Tizanidine Hcl] 2 MG Capsule) PO SCH (16:45)
[2024-03-24 17:15] LABS: Appearance Clear (Clear); Bacteria None Seen /HPF (None Seen); Bilirubin Negative (Negative); Blood Negative (Negative); Epithelial Cells None Seen /HPF (None Seen); Glucose, Urine Negative (Negative); Hyaline Casts NONE SEEN /LPF (0-2); Ketones Negative (Negative); Leukocyte Esterase Negative (Negative); Nitrite Negative (Negative); Protein,Urine Dip Trace (Negative); RBC 0-2 /HPF (0-5); Specific Gravity 1.025 (1.005-1.030); WBC 0-2 /HPF (0-5)
[2024-03-24 17:23] LABS: Amphetamine,Urine NEGATIVE (NEGATIVE); Barbiturate,Urine NEGATIVE (NEGATIVE); Benzodiazepine,Urine NEGATIVE (NEGATIVE); Cocaine,Urine NEGATIVE (NEGATIVE); Methadone,Urine NEGATIVE (NEGATIVE); Opiate,Urine NEGATIVE (NEGATIVE); PCP,Urine NEGATIVE (NEGATIVE); THC,Urine NEGATIVE (NEGATIVE)
[2024-03-24] MEDS: OMNICEF 300 MG PO SCH ×2 (18:39→21:46)
[2024-03-24] MEDS: NON-FORMULARY ITEM (Lumateperone Tosylate [Caplyta] 42 MG Capsule) PO SCH (21:53)
--- NOTE | 2024-03-24 22:05 | XRAY ---
Indication: Chest pain. Bradycardia. Comparison: October 17, 2020 Portable chest now hyperinflated and is now clear. Heart not enlarged. Bony thorax intact. No acute findings.
[2024-03-24] MEDS: TYLENOL 325 MG PO PRN (23:09)
--- NOTE | 2024-03-25 05:06 | PCM.NOTE ---
Date and Time: 03/25/24 0506 Subjective Assessment: Mr. Peter is a 49 year old male with multiple cardiovascular risk factor including hypertension, hyperlipidemia, and obesity (BMI > 30) who presented to ED 03/24/24 with complaints of dizziness, intermittent chest discomfort, and bradycardia with HR reported in the 30s at home. Patient states that symptoms began at work when he began to feel dizzy and felt like "I had a Raghavendra Horse in my heart." He has been having recent issues with his blood pressure reaching 180's/120's and has been started on several new medications in addition to his metoprolol that he has been on for several years including HCTZ and clonidine. He decided to take his BP at work due to his symptoms and noticed his HR was in the 30's. He went home from work and was still experiencing symptoms and his who is a nurse took a manual pulse and it was in the 40's. Chest discomfort is substernal with no radiation. Sharp, knife-like pain, moderate intensity and intermittent. No relieving/aggravating factors. Associated shortness of breath and nausea. Additional medical history includes GERD, IBS, anxiety, and depression. Patient states parents in their 40's from heart disease. Upon arrival to ED, vitals stable. HR noted at 64. EKG -RATE (61), Sinus Rhythm, NORMAL AXIS, NORMAL INTERVALS, NORMAL QRS. Lab findings unremarkable. Patient given aspirin in ED. PVCs reported on tele. Objective Data Vital Signs: Vital Signs - 24 hr Temp Pulse Resp BP BP BP Pulse Ox 03/24/24 23:46 96.9 F 77 19 139/79 96 03/24/24 19:09 97.3 F 81 16 118/66 96 03/24/24 16:00 98.5 F 57 L 19 136/97 136/97 96 03/24/24 15:12 97 03/24/24 15:00 65 18 133/87 98 03/24/24 14:30 63 16 137/84 96 03/24/24 14:00 63 11 L 148/99 99 03/24/24 13:30 71 16 135/92 99 03/24/24 13:00 62 14 141/80 96 03/24/24 12:30 57 L 13 130/88 95 03/24/24 12:04 64 13 136/92 98 03/24/24 11:41 120/86 96 03/24/24 11:40 68 10 L 136/98 98 03/24/24 11:39 75 10 L 129/82 98 03/24/24 11:33 96.7 F 66 19 130/89 130/89 98 Pain Assessment - Last Documented Pain Intensity 0 Pain Scale Used 0-10 Pain Scale Intake and Output: Intake & Output 03/22/24 03/23/24 03/24/24 03/25/24 11:59 11:59 11:59 11:59 Intake Total 460 Balance 460 Weight 112.3 kg 113.2 kg Lab Results: Lab Results-Last 24 Hours 03/24/24 03/24/24 03/24/24 Range/Units 12:08 12:08 12:08 WBC 6.9 (4.23-9.07) x10^3/uL RBC 4.93 (4.63-6.08) x10^6/uL Hgb 15.4 (13.7-17.5) g/dL Hct 42.4 (40.1-51.0) % MCV 86.0 (79.0-92.2) fL MCH 31.2 (25.7-32.2) pg MCHC 36.3 (32.3-36.5) g/dL RDW 12.0 (11.6-14.4) % Plt Count 259 (163-337) x10^3/uL MPV 9.1 L (9.4-12.4) fL Gran % 64.2 (34.0-67.9) % Immature Gran % (Auto) 0.3 (0.001-0.429) % Nucleat RBC Rel Count 0.0 (0.00-0.2) % Eos # (Auto) 0.12 (0.04-0.54) x10^3/uL Immature Gran # (Auto) 0.02 (0.001-0.031) x10^3u/L Absolute Lymphs (auto) 1.66 (1.32-3.57) x10^3/uL Absolute Monos (auto) 0.63 (0.30-0.82) x10^3/uL Absolute Nucleated RBC 0.00 (0.00-0.012) x10^3u/L Lymphocytes % 24.1 (21.8-53.1) % Monocytes % 9.1 (5.3-12.2) % Eosinophils % 1.7 (0.8-7.0) % Basophils % 0.6 (0.2-1.2) % Absolute Granulocytes 4.43 (1.78-5.38) x10^3/uL Basophils # 0.04 (0.01-0.08) x10^3/uL D-Dimer (0.0-0.50) mg/L Sodium 140 (135-145) mmol/L Potassium 3.8 (3.5-5.1) mmol/L Chloride 106 (98-107) mmol/L Carbon Dioxide 26 (22-30) mmol/L Anion Gap 11.6 (5-15) MEQ/L BUN 21 H (9-20) mg/dL Creatinine 0.95 (0.66-1.25) mg/dL Estimated GFR 98.1 ML/MIN Glucose 103 (74-106) mg/dL Calcium 9.0 (8.4-10.2) mg/dL Total Bilirubin 1.40 H (0.2-1.3) mg/dL AST 35 (17-59) U/L ALT 37 (0-50) U/L Alkaline Phosphatase 74 (38-126) U/L Troponin I < 0.012 (0.000-0.033) ng/mL NT-Pro-B Natriuret Pep 41.5 (<300) pg/mL Serum Total Protein 7.6 (6.3-8.2) g/dL Albumin 4.6 (3.5-5.0) g/dL TSH 3rd Generation 1.139 (0.470-4.680) mIU/L Urine Color (Yellow) Urine Appearance (Clear) Urine pH (4.6-8.0) Ur Specific Felicity (1.005-1.030) Urine Protein (Negative) Urine Glucose (UA) (Negative) mg/dL Urine Ketones (Negative) Urine Blood (Negative) Urine Nitrite (Negative) Urine Bilirubin (Negative) Urine Urobilinogen (0.2) mg/dL Ur Leukocyte Esterase (Negative) U Hyaline Cast (Auto) (0-2) /LPF Urine Microscopic RBC (0-5) /HPF Urine Microscopic WBC (0-5) /HPF Ur Epithelial Cells (None Seen) /HPF Urine Bacteria (None Seen) /HPF Urine Culture Reflexed (NO) Urine Opiates Level (NEGATIVE) Ur Methadone (NEGATIVE) Urine Barbiturates (NEGATIVE) Ur Phencyclidine (PCP) (NEGATIVE) Urine Amphetamine (NEGATIVE) U Benzodiazepine Level (NEGATIVE) Urine Cocaine (NEGATIVE) Urine Marijuana (THC) (NEGATIVE) 03/24/24 03/24/24 03/24/24 Range/Units 12:08 12:40 12:40 WBC (4.23-9.07) x10^3/uL RBC (4.63-6.08) x10^6/uL Hgb (13.7-17.5) g/dL Hct (40.1-51.0) % MCV (79.0-92.2) fL MCH (25.7-32.2) pg MCHC (32.3-36.5) g/dL RDW (11.6-14.4) % Plt Count (163-337) x10^3/uL MPV (9.4-12.4) fL Gran % (34.0-67.9) % Immature Gran % (Auto) (0.001-0.429) % Nucleat RBC Rel Count (0.00-0.2) % Eos # (Auto) (0.04-0.54) x10^3/uL Immature Gran # (Auto) (0.001-0.031) x10^3u/L Absolute Lymphs (auto) (1.32-3.57) x10^3/uL Absolute Monos (auto) (0.30-0.82) x10^3/uL Absolute Nucleated RBC (0.00-0.012) x10^3u/L Lymphocytes % (21.8-53.1) % Monocytes % (5.3-12.2) % Eosinophils % (0.8-7.0) % Basophils % (0.2-1.2) % Absolute Granulocytes (1.78-5.38) x10^3/uL Basophils # (0.01-0.08) x10^3/uL D-Dimer 0.27 (0.0-0.50) mg/L Sodium (135-145) mmol/L Potassium (3.5-5.1) mmol/L Chloride (98-107) mmol/L Carbon Dioxide (22-30) mmol/L Anion Gap (5-15) MEQ/L BUN (9-20) mg/dL Creatinine (0.66-1.25) mg/dL Estimated GFR ML/MIN Glucose (74-106) mg/dL Calcium (8.4-10.2) mg/dL Total Bilirubin (0.2-1.3) mg/dL AST (17-59) U/L ALT (0-50) U/L Alkaline Phosphatase (38-126) U/L Troponin I (0.000-0.033) ng/mL NT-Pro-B Natriuret Pep (<300) pg/mL Serum Total Protein (6.3-8.2) g/dL Albumin (3.5-5.0) g/dL TSH 3rd Generation (0.470-4.680) mIU/L Urine Color Yellow (Yellow) Urine Appearance Clear (Clear) Urine pH 6.0 (4.6-8.0) Ur Specific Felicity 1.025 (1.005-1.030) Urine Protein Trace A (Negative) Urine Glucose (UA) Negative (Negative) mg/dL Urine Ketones Negative (Negative) Urine Blood Negative (Negative) Urine Nitrite Negative (Negative) Urine Bilirubin Negative (Negative) Urine Urobilinogen 1.0 A (0.2) mg/dL Ur Leukocyte Esterase Negative (Negative) U Hyaline Cast (Auto) NONE SEEN (0-2) /LPF Urine Microscopic RBC 0-2 (0-5) /HPF Urine Microscopic WBC 0-2 (0-5) /HPF Ur Epithelial Cells None Seen (None Seen) /HPF Urine Bacteria None Seen (None Seen) /HPF Urine Culture Reflexed NO (NO) Urine Opiates Level NEGATIVE (NEGATIVE) Ur Methadone NEGATIVE (NEGATIVE) Urine Barbiturates NEGATIVE (NEGATIVE) Ur Phencyclidine (PCP) NEGATIVE (NEGATIVE) Urine Amphetamine NEGATIVE (NEGATIVE) U Benzodiazepine Level NEGATIVE (NEGATIVE) Urine Cocaine NEGATIVE (NEGATIVE) Urine Marijuana (THC) NEGATIVE (NEGATIVE) 03/24/24 03/24/24 Range/Units 16:18 21:20 WBC (4.23-9.07) x10^3/uL RBC (4.63-6.08) x10^6/uL Hgb (13.7-17.5) g/dL Hct (40.1-51.0) % MCV (79.0-92.2) fL MCH (25.7-32.2) pg MCHC (32.3-36.5) g/dL RDW (11.6-14.4) % Plt Count (163-337) x10^3/uL MPV (9.4-12.4) fL Gran % (34.0-67.9) % Immature Gran % (Auto) (0.001-0.429) % Nucleat RBC Rel Count (0.00-0.2) % Eos # (Auto) (0.04-0.54) x10^3/uL Immature Gran # (Auto) (0.001-0.031) x10^3u/L Absolute Lymphs (auto) (1.32-3.57) x10^3/uL Absolute Monos (auto) (0.30-0.82) x10^3/uL Absolute Nucleated RBC (0.00-0.012) x10^3u/L Lymphocytes % (21.8-53.1) % Monocytes % (5.3-12.2) % Eosinophils % (0.8-7.0) % Basophils % (0.2-1.2) % Absolute Granulocytes (1.78-5.38) x10^3/uL Basophils # (0.01-0.08) x10^3/uL D-Dimer (0.0-0.50) mg/L Sodium (135-145) mmol/L Potassium (3.5-5.1) mmol/L Chloride (98-107) mmol/L Carbon Dioxide (22-30) mmol/L Anion Gap (5-15) MEQ/L BUN (9-20) mg/dL Creatinine (0.66-1.25) mg/dL Estimated GFR ML/MIN Glucose (74-106) mg/dL Calcium (8.4-10.2) mg/dL Total Bilirubin (0.2-1.3) mg/dL AST (17-59) U/L ALT (0-50) U/L Alkaline Phosphatase (38-126) U/L Troponin I < 0.012 < 0.012 (0.000-0.033) ng/mL NT-Pro-B Natriuret Pep (<300) pg/mL Serum Total Protein (6.3-8.2) g/dL Albumin (3.5-5.0) g/dL TSH 3rd Generation (0.470-4.680) mIU/L Urine Color (Yellow) Urine Appearance (Clear) Urine pH (4.6-8.0) Ur Specific Felicity (1.005-1.030) Urine Protein (Negative) Urine Glucose (UA) (Negative) mg/dL Urine Ketones (Negative) Urine Blood (Negative) Urine Nitrite (Negative) Urine Bilirubin (Negative) Urine Urobilinogen (0.2) mg/dL Ur Leukocyte Esterase (Negative) U Hyaline Cast (Auto) (0-2) /LPF Urine Microscopic RBC (0-5) /HPF Urine Microscopic WBC (0-5) /HPF Ur Epithelial Cells (None Seen) /HPF Urine Bacteria (None Seen) /HPF Urine Culture Reflexed (NO) Urine Opiates Level (NEGATIVE) Ur Methadone (NEGATIVE) Urine Barbiturates (NEGATIVE) Ur Phencyclidine (PCP) (NEGATIVE) Urine Amphetamine (NEGATIVE) U Benzodiazepine Level (NEGATIVE) Urine Cocaine (NEGATIVE) Urine Marijuana (THC) (NEGATIVE) Radiology Exams: Radiology Procedures Category Date Time Status CHEST 1 VIEW (PORTABLE) Stat Exams 03/24/24 12:04 Completed Assessment/Plan (1) Symptomatic bradycardia Current Visit: Yes Status: Acute Assessment & Plan: -EKG reviewed on ER documentation -RATE (61), Sinus Rhythm, NORMAL AXIS, NORMAL INTERVALS, NORMAL QRS - repeat in the morning -Echo unavailable during the weekend -TSH WNL -HR WNL upon arrival -May need event monitor on discharge -CMP/CBC reviewed -unremarkable -Medications reviewed- patient on metoprolol/lisinopril for several years- recent addition of HCTZ and clonidine- will hold metoprolol/HCTZ/clonidine-may need dose adjustment -Cards consulted appreciate recs -Trops neg x 1-trend -Tele -UDS Code(s): R00.1 - BRADYCARDIA, UNSPECIFIED (2) Chest pain Current Visit: Yes Status: Acute Assessment & Plan: -ASA given in ED -EKG and trops x 1 unremarkable -Echo unavailable over the weekend - may need outpatient -Nitro -Ddimer -CXR negative for acute cardiopulmonary findings -tele -cardiology consulted Code(s): R07.9 - CHEST PAIN, UNSPECIFIED (3) GERD (gastroesophageal reflux disease) Current Visit: Yes Status: Acute Assessment & Plan: -continue protonix Code(s): K21.9 - GASTRO-ESOPHAGEAL REFLUX DISEASE WITHOUT ESOPHAGITIS (4) HTN (hypertension) Current Visit: Yes Status: Acute Assessment & Plan: -BP stable -Hold metoprolol/HCTZ/Clonidine for now - continue lisinopril -Monitor closely Code(s): I10 - ESSENTIAL (PRIMARY) HYPERTENSION (5) HLD (hyperlipidemia) Current Visit: Yes Status: Acute Assessment & Plan: -continue statin Code(s): E78.5 - HYPERLIPIDEMIA, UNSPECIFIED (6) Anxiety and depression Current Visit: Yes Status: Acute Assessment & Plan: -Continue [place] Code(s): F41.9 - ANXIETY DISORDER, UNSPECIFIED; F32.A - DEPRESSION, UNSPECIFIED (7) Irritable bowel syndrome (IBS) Current Visit: No Status: Acute Assessment & Plan: -Noted -no current issue VTE: Lovenox PPI: protonix Dispo: 1-2 days Code: Full Code(s): R00.1 - BRADYCARDIA, UNSPECIFIED (2) Chest pain Current Visit: Yes Status: Acute Code(s): R07.9 - CHEST PAIN, UNSPECIFIED (3) GERD (gastroesophageal reflux disease) Current Visit: Yes Status: Acute Code(s): K21.9 - GASTRO-ESOPHAGEAL REFLUX DISEASE WITHOUT ESOPHAGITIS (4) HTN (hypertension) Current Visit: Yes Status: Acute Code(s): I10 - ESSENTIAL (PRIMARY) HYPERTENSION (5) HLD (hyperlipidemia) Current Visit: Yes Status: Acute Code(s): E78.5 - HYPERLIPIDEMIA, UNSPECIFIED (6) Anxiety and depression Current Visit: Yes Status: Acute Code(s): F41.9 - ANXIETY DISORDER, UNSPECIFIED; F32.A - DEPRESSION, UNSPECIFIED (7) Irritable bowel syndrome (IBS) Current Visit: No Status: Acute
[2024-03-25 05:10] VITALS: PULSE 76; O2SAT 97
[2024-03-25 05:30] LABS: Absolute Neutrophil Ct (ANC) 4.54 x10^3/uL (1.78-5.38); BASOPHIL % 0.5 % (0.2-1.2); Basophil (Absolute #) 0.04 x10^3/uL (0.01-0.08); Eosinophil % 2.2 % (0.8-7.0); Eosinophil (Absolute #) 0.16 x10^3/uL (0.04-0.54); Hematocrit 43.9 % (40.1-51.0); Hemoglobin 15.3 g/dL (13.7-17.5); IMMATURE GRAN # 0.02 x10^3u/L (0.001-0.031); IMMATURE GRAN % 0.3 % (0.001-0.429); Lymphocyte (Absolute #) 1.88 x10^3/uL (1.32-3.57); Lymphocytes % 25.8 % (21.8-53.1); Mean Cell Volume 86.6 fL (79.0-92.2); Mean Corpuscular Hemoglobin 30.2 pg (25.7-32.2); Mean Corpuscular Hgb Concent. 34.9 g/dL (32.3-36.5); Mean Platelet Volume 9.2 fL (9.4-12.4); Monocyte (Absolute #) 0.64 x10^3/uL (0.30-0.82); Monocytes % 8.8 % (5.3-12.2); Neutrophil % 62.4 % (34.0-67.9); Platelet Count 269 x10^3/uL (163-337); Red Blood Count 5.07 x10^6/uL (4.63-6.08); Red Cell Distribution Width 12.4 % (11.6-14.4); White Blood Count 7.3 x10^3/uL (4.23-9.07)
[2024-03-25 05:58] LABS: ALBUMIN 4.5 g/dL (3.5-5.0); ANION GAP 13.3 MEQ/L (5-15); BILIRUBIN,TOTAL 0.6 mg/dL (0.2-1.3); Creatinine 1 0.91 mg/dL (0.66-1.25); EST GLOMERULAR FILTRATION RATE 103.3 ML/MIN; Potassium 3.4 mmol/L (3.5-5.1); Total Protein 7.4 g/dL (6.3-8.2)
[2024-03-25 07:00] VITALS: BP 133/80; RESP 18; TEMP 96.9
[2024-03-25] MEDS ORDERED: Zanaflex 4 MG PO PRN (08:13)
[2024-03-25] MEDS ORDERED: MEDICATION INTERVENTION MC SCH (08:15)
[2024-03-25] MEDS: Protonix 20MG Tablet PO SCH (08:38)
[2024-03-25] MEDS: ENOXAPARIN SODIUM SQ SCH (08:38)
[2024-03-25] MEDS: ZOCOR 20MG PO SCH (08:38)
[2024-03-25] MEDS: Klor Con PO SCH (08:38)
[2024-03-25] MEDS: Zestril 20 MG PO SCH (08:38)
--- NOTE | 2024-03-25 09:32 | PCM.DS ---
Discharge Summary Date of Admission: 03/24/24 15:44 Date of Discharge: 03/25/24 Admitting Physician: ELOY NAPIER MD Consults: Consults on Case 03/24/24 16:13 Cardiology Consult [Notify [facility] Operator of Admit] ROUTINE Primary Care Provider: AMERICO VILLAFANA DO Allergies Allergies amoxicillin Allergy (Verified 03/24/24 16:02) Hospital Summary - Hospital Course Hospital Course: Mr. Peter is a 49 year old male with multiple cardiovascular risk factor including hypertension, hyperlipidemia, and obesity (BMI > 30) who presented to ED 03/24/24 with complaints of dizziness, intermittent chest discomfort, and bradycardia with HR reported in the 30s at home. Patient states that symptoms began at work when he began to feel dizzy and felt like "I had a Raghavendra Horse in my heart." He has been having recent issues with his blood pressure reaching 180's/120's and has been started on several new medications in addition to his metoprolol that he has been on for several years including HCTZ and clonidine. He decided to take his BP at work due to his symptoms and noticed his HR was in the 30's. He went home from work and was still experiencing symptoms and his who is a nurse took a manual pulse and it was in the 40's. Chest discomfort is substernal with no radiation. Sharp, knife-like pain, moderate intensity and intermittent. No relieving/aggravating factors. Associated shortness of breath and nausea. Additional medical history includes GERD, IBS, anxiety, and depression. Patient states parents in their 40's from heart disease. Upon arrival to ED, vitals stable. HR noted at 64. EKG -RATE (61), Sinus Rhythm, NORMAL AXIS, NORMAL INTERVALS, NORMAL QRS. Lab findings unremarkable. Patient given aspirin in ED. PVCs reported on tele. No overnight events noted. No abnormalities on tele. HR controlled- no episodes of bradycardia. EKG with NS no ST elevations/deviations. Cardiology evaluated patient Ruled out for ACS - negative troponins, no EKG changes with recommendations for OP stress test or coronary CTA at some point. Patient to continue to hold Metprolol and keep BP/HR log and follow up with PCP next week. Patient agreeable to plan- cleared by cardiology for discharge. Patient hypokalemic this morning- will replenish - patient can discharge once potassium labs come back and WNL. Discharge Note New Diagnosis: Bradycardia/chest pain New Medications: Hold metoprolol Follow Up: Cardiology/pcp Outpatient testing to order: OP stress test/CTA coronary at some point I spent 35 minutes [id number] with the patient on the day of discharge performing discharge exam, discussing hospital stay and discharge instructions with patient and caregivers, preparation of discharge records, prescriptions & referral forms and addressing any questions/concerns the patient had as documented above. - Vitals & Intake/Output Vital Signs: Vital Signs Temperature 96.9 F 03/25/24 07:00 Pulse Rate 76 03/25/24 07:00 Respiratory Rate 18 03/25/24 07:00 Blood Pressure 133/80 03/25/24 07:00 O2 Sat by Pulse Oximetry 97 03/25/24 07:00 Intake & Output: Intake & Output 03/22/24 03/23/24 03/24/24 03/25/24 11:59 11:59 11:59 11:59 Intake Total 1390 Balance 1390 Weight 112.3 kg 113.5 kg - Lab Result Diagrams: 03/25/24 04:55 03/25/24 04:55 Lab Results-Last 24 Hrs: Lab Results-Last 24 Hours 03/24/24 03/24/24 03/24/24 Range/Units 12:08 12:08 12:08 WBC 6.9 (4.23-9.07) x10^3/uL RBC 4.93 (4.63-6.08) x10^6/uL Hgb 15.4 (13.7-17.5) g/dL Hct 42.4 (40.1-51.0) % MCV 86.0 (79.0-92.2) fL MCH 31.2 (25.7-32.2) pg MCHC 36.3 (32.3-36.5) g/dL RDW 12.0 (11.6-14.4) % Plt Count 259 (163-337) x10^3/uL MPV 9.1 L (9.4-12.4) fL Gran % 64.2 (34.0-67.9) % Immature Gran % (Auto) 0.3 (0.001-0.429) % Nucleat RBC Rel Count 0.0 (0.00-0.2) % Eos # (Auto) 0.12 (0.04-0.54) x10^3/uL Immature Gran # (Auto) 0.02 (0.001-0.031) x10^3u/L Absolute Lymphs (auto) 1.66 (1.32-3.57) x10^3/uL Absolute Monos (auto) 0.63 (0.30-0.82) x10^3/uL Absolute Nucleated RBC 0.00 (0.00-0.012) x10^3u/L Lymphocytes % 24.1 (21.8-53.1) % Monocytes % 9.1 (5.3-12.2) % Eosinophils % 1.7 (0.8-7.0) % Basophils % 0.6 (0.2-1.2) % Absolute Granulocytes 4.43 (1.78-5.38) x10^3/uL Basophils # 0.04 (0.01-0.08) x10^3/uL D-Dimer (0.0-0.50) mg/L Sodium 140 (135-145) mmol/L Potassium 3.8 (3.5-5.1) mmol/L Chloride 106 (98-107) mmol/L Carbon Dioxide 26 (22-30) mmol/L Anion Gap 11.6 (5-15) MEQ/L BUN 21 H (9-20) mg/dL Creatinine 0.95 (0.66-1.25) mg/dL Estimated GFR 98.1 ML/MIN Glucose 103 (74-106) mg/dL Calcium 9.0 (8.4-10.2) mg/dL Magnesium (1.6-2.3) mg/dL Total Bilirubin 1.40 H (0.2-1.3) mg/dL AST 35 (17-59) U/L ALT 37 (0-50) U/L Alkaline Phosphatase 74 (38-126) U/L Troponin I < 0.012 (0.000-0.033) ng/mL NT-Pro-B Natriuret Pep 41.5 (<300) pg/mL Serum Total Protein 7.6 (6.3-8.2) g/dL Albumin 4.6 (3.5-5.0) g/dL TSH 3rd Generation 1.139 (0.470-4.680) mIU/L Urine Color (Yellow) Urine Appearance (Clear) Urine pH (4.6-8.0) Ur Specific [place] (1.005-1.030) Urine Protein (Negative) Urine Glucose (UA) (Negative) mg/dL Urine Ketones (Negative) Urine Blood (Negative) Urine Nitrite (Negative) Urine Bilirubin (Negative) Urine Urobilinogen (0.2) mg/dL Ur Leukocyte Esterase (Negative) U Hyaline Cast (Auto) (0-2) /LPF Urine Microscopic RBC (0-5) /HPF Urine Microscopic WBC (0-5) /HPF Ur Epithelial Cells (None Seen) /HPF Urine Bacteria (None Seen) /HPF Urine Culture Reflexed (NO) Urine Opiates Level (NEGATIVE) Ur Methadone (NEGATIVE) Urine Barbiturates (NEGATIVE) Ur Phencyclidine (PCP) (NEGATIVE) Urine Amphetamine (NEGATIVE) U Benzodiazepine Level (NEGATIVE) Urine Cocaine (NEGATIVE) Urine Marijuana (THC) (NEGATIVE) 03/24/24 03/24/24 03/24/24 Range/Units 12:08 12:40 12:40 WBC (4.23-9.07) x10^3/uL RBC (4.63-6.08) x10^6/uL Hgb (13.7-17.5) g/dL Hct (40.1-51.0) % MCV (79.0-92.2) fL MCH (25.7-32.2) pg MCHC (32.3-36.5) g/dL RDW (11.6-14.4) % Plt Count (163-337) x10^3/uL MPV (9.4-12.4) fL Gran % (34.0-67.9) % Immature Gran % (Auto) (0.001-0.429) % Nucleat RBC Rel Count (0.00-0.2) % Eos # (Auto) (0.04-0.54) x10^3/uL Immature Gran # (Auto) (0.001-0.031) x10^3u/L Absolute Lymphs (auto) (1.32-3.57) x10^3/uL Absolute Monos (auto) (0.30-0.82) x10^3/uL Absolute Nucleated RBC (0.00-0.012) x10^3u/L Lymphocytes % (21.8-53.1) % Monocytes % (5.3-12.2) % Eosinophils % (0.8-7.0) % Basophils % (0.2-1.2) % Absolute Granulocytes (1.78-5.38) x10^3/uL Basophils # (0.01-0.08) x10^3/uL D-Dimer 0.27 (0.0-0.50) mg/L Sodium (135-145) mmol/L Potassium (3.5-5.1) mmol/L Chloride (98-107) mmol/L Carbon Dioxide (22-30) mmol/L Anion Gap (5-15) MEQ/L BUN (9-20) mg/dL Creatinine (0.66-1.25) mg/dL Estimated GFR ML/MIN Glucose (74-106) mg/dL Calcium (8.4-10.2) mg/dL Magnesium (1.6-2.3) mg/dL Total Bilirubin (0.2-1.3) mg/dL AST (17-59) U/L ALT (0-50) U/L Alkaline Phosphatase (38-126) U/L Troponin I (0.000-0.033) ng/mL NT-Pro-B Natriuret Pep (<300) pg/mL Serum Total Protein (6.3-8.2) g/dL Albumin (3.5-5.0) g/dL TSH 3rd Generation (0.470-4.680) mIU/L Urine Color Yellow (Yellow) Urine Appearance Clear (Clear) Urine pH 6.0 (4.6-8.0) Ur Specific [place] 1.025 (1.005-1.030) Urine Protein Trace A (Negative) Urine Glucose (UA) Negative (Negative) mg/dL Urine Ketones Negative (Negative) Urine Blood Negative (Negative) Urine Nitrite Negative (Negative) Urine Bilirubin Negative (Negative) Urine Urobilinogen 1.0 A (0.2) mg/dL Ur Leukocyte Esterase Negative (Negative) U Hyaline Cast (Auto) NONE SEEN (0-2) /LPF Urine Microscopic RBC 0-2 (0-5) /HPF Urine Microscopic WBC 0-2 (0-5) /HPF Ur Epithelial Cells None Seen (None Seen) /HPF Urine Bacteria None Seen (None Seen) /HPF Urine Culture Reflexed NO (NO) Urine Opiates Level NEGATIVE (NEGATIVE) Ur Methadone NEGATIVE (NEGATIVE) Urine Barbiturates NEGATIVE (NEGATIVE) Ur Phencyclidine (PCP) NEGATIVE (NEGATIVE) Urine Amphetamine NEGATIVE (NEGATIVE) U Benzodiazepine Level NEGATIVE (NEGATIVE) Urine Cocaine NEGATIVE (NEGATIVE) Urine Marijuana (THC) NEGATIVE (NEGATIVE) 03/24/24 03/24/24 03/25/24 Range/Units 16:18 21:20 04:55 WBC 7.3 (4.23-9.07) x10^3/uL RBC 5.07 (4.63-6.08) x10^6/uL Hgb 15.3 (13.7-17.5) g/dL Hct 43.9 (40.1-51.0) % MCV 86.6 (79.0-92.2) fL MCH 30.2 (25.7-32.2) pg MCHC 34.9 (32.3-36.5) g/dL RDW 12.4 (11.6-14.4) % Plt Count 269 (163-337) x10^3/uL MPV 9.2 L (9.4-12.4) fL Gran % 62.4 (34.0-67.9) % Immature Gran % (Auto) 0.3 (0.001-0.429) % Nucleat RBC Rel Count 0.0 (0.00-0.2) % Eos # (Auto) 0.16 (0.04-0.54) x10^3/uL Immature Gran # (Auto) 0.02 (0.001-0.031) x10^3u/L Absolute Lymphs (auto) 1.88 (1.32-3.57) x10^3/uL Absolute Monos (auto) 0.64 (0.30-0.82) x10^3/uL Absolute Nucleated RBC 0.00 (0.00-0.012) x10^3u/L Lymphocytes % 25.8 (21.8-53.1) % Monocytes % 8.8 (5.3-12.2) % Eosinophils % 2.2 (0.8-7.0) % Basophils % 0.5 (0.2-1.2) % Absolute Granulocytes 4.54 (1.78-5.38) x10^3/uL Basophils # 0.04 (0.01-0.08) x10^3/uL D-Dimer (0.0-0.50) mg/L Sodium (135-145) mmol/L Potassium (3.5-5.1) mmol/L Chloride (98-107) mmol/L Carbon Dioxide (22-30) mmol/L Anion Gap (5-15) MEQ/L BUN (9-20) mg/dL Creatinine (0.66-1.25) mg/dL Estimated GFR ML/MIN Glucose (74-106) mg/dL Calcium (8.4-10.2) mg/dL Magnesium (1.6-2.3) mg/dL Total Bilirubin (0.2-1.3) mg/dL AST (17-59) U/L ALT (0-50) U/L Alkaline Phosphatase (38-126) U/L Troponin I < 0.012 < 0.012 (0.000-0.033) ng/mL NT-Pro-B Natriuret Pep (<300) pg/mL Serum Total Protein (6.3-8.2) g/dL Albumin (3.5-5.0) g/dL TSH 3rd Generation (0.470-4.680) mIU/L Urine Color (Yellow) Urine Appearance (Clear) Urine pH (4.6-8.0) Ur Specific [place] (1.005-1.030) Urine Protein (Negative) Urine Glucose (UA) (Negative) mg/dL Urine Ketones (Negative) Urine Blood (Negative) Urine Nitrite (Negative) Urine Bilirubin (Negative) Urine Urobilinogen (0.2) mg/dL Ur Leukocyte Esterase (Negative) U Hyaline Cast (Auto) (0-2) /LPF Urine Microscopic RBC (0-5) /HPF Urine Microscopic WBC (0-5) /HPF Ur Epithelial Cells (None Seen) /HPF Urine Bacteria (None Seen) /HPF Urine Culture Reflexed (NO) Urine Opiates Level (NEGATIVE) Ur Methadone (NEGATIVE) Urine Barbiturates (NEGATIVE) Ur Phencyclidine (PCP) (NEGATIVE) Urine Amphetamine (NEGATIVE) U Benzodiazepine Level (NEGATIVE) Urine Cocaine (NEGATIVE) Urine Marijuana (THC) (NEGATIVE) 03/25/24 03/25/24 Range/Units 04:55 07:27 WBC (4.23-9.07) x10^3/uL RBC (4.63-6.08) x10^6/uL Hgb (13.7-17.5) g/dL Hct (40.1-51.0) % MCV (79.0-92.2) fL MCH (25.7-32.2) pg MCHC (32.3-36.5) g/dL RDW (11.6-14.4) % Plt Count (163-337) x10^3/uL MPV (9.4-12.4) fL Gran % (34.0-67.9) % Immature Gran % (Auto) (0.001-0.429) % Nucleat RBC Rel Count (0.00-0.2) % Eos # (Auto) (0.04-0.54) x10^3/uL Immature Gran # (Auto) (0.001-0.031) x10^3u/L Absolute Lymphs (auto) (1.32-3.57) x10^3/uL Absolute Monos (auto) (0.30-0.82) x10^3/uL Absolute Nucleated RBC (0.00-0.012) x10^3u/L Lymphocytes % (21.8-53.1) % Monocytes % (5.3-12.2) % Eosinophils % (0.8-7.0) % Basophils % (0.2-1.2) % Absolute Granulocytes (1.78-5.38) x10^3/uL Basophils # (0.01-0.08) x10^3/uL D-Dimer (0.0-0.50) mg/L Sodium 142 (135-145) mmol/L Potassium 3.4 L (3.5-5.1) mmol/L Chloride 108 H (98-107) mmol/L Carbon Dioxide 24 (22-30) mmol/L Anion Gap 13.3 (5-15) MEQ/L BUN 20 (9-20) mg/dL Creatinine 0.91 (0.66-1.25) mg/dL Estimated GFR 103.3 ML/MIN Glucose 165 H (74-106) mg/dL Calcium 9.0 (8.4-10.2) mg/dL Magnesium 2.2 (1.6-2.3) mg/dL Total Bilirubin 0.60 (0.2-1.3) mg/dL AST 34 (17-59) U/L ALT 39 (0-50) U/L Alkaline Phosphatase 74 (38-126) U/L Troponin I (0.000-0.033) ng/mL NT-Pro-B Natriuret Pep (<300) pg/mL Serum Total Protein 7.4 (6.3-8.2) g/dL Albumin 4.5 (3.5-5.0) g/dL TSH 3rd Generation (0.470-4.680) mIU/L Urine Color (Yellow) Urine Appearance (Clear) Urine pH (4.6-8.0) Ur Specific [place] (1.005-1.030) Urine Protein (Negative) Urine Glucose (UA) (Negative) mg/dL Urine Ketones (Negative) Urine Blood (Negative) Urine Nitrite (Negative) Urine Bilirubin (Negative) Urine Urobilinogen (0.2) mg/dL Ur Leukocyte Esterase (Negative) U Hyaline Cast (Auto) (0-2) /LPF Urine Microscopic RBC (0-5) /HPF Urine Microscopic WBC (0-5) /HPF Ur Epithelial Cells (None Seen) /HPF Urine Bacteria (None Seen) /HPF Urine Culture Reflexed (NO) Urine Opiates Level (NEGATIVE) Ur Methadone (NEGATIVE) Urine Barbiturates (NEGATIVE) Ur Phencyclidine (PCP) (NEGATIVE) Urine Amphetamine (NEGATIVE) U Benzodiazepine Level (NEGATIVE) Urine Cocaine (NEGATIVE) Urine Marijuana (THC) (NEGATIVE) - Radiology Exams Ordered Rad Exams-Entire Visit: Radiology Procedures Category Date Time Status CHEST 1 VIEW (PORTABLE) Stat Exams 03/24/24 12:04 Completed - Procedures and Test Procedures and Tests throughout Hospitalization: Therapy Orders & Screens 03/24/24 16:30 EKG REPEAT IN AM Comment: Diagnosis: Symptomatic bradycardia/chest pain Discharge Exam General Appearance: no apparent distress Neurologic Exam: alert, oriented x 3, cooperative Eye Exam: PERRL Ears, Nose, Throat Exam: normal ENT inspection Neck Exam: normal inspection Respiratory Exam: normal breath sounds, lungs clear Cardiovascular Exam: regular rate/rhythm, normal heart sounds Gastrointestinal/Abdomen Exam: soft, normal bowel sounds Male Genitalia Exam: deferred Rectal Exam: deferred Back Exam: normal inspection Extremity Exam: normal inspection Skin Exam: normal color Final Diagnosis/Problem List - Final Discharge Diagnosis/Problem (1) Symptomatic bradycardia Current Visit: Yes Status: Resolved Code(s): R00.1 - BRADYCARDIA, UNSPECIFIED (2) Chest pain Current Visit: Yes Status: Resolved Code(s): R07.9 - CHEST PAIN, UNSPECIFIED (3) GERD (gastroesophageal reflux disease) Current Visit: Yes Status: Chronic Code(s): K21.9 - GASTRO-ESOPHAGEAL REFLUX DISEASE WITHOUT ESOPHAGITIS (4) HTN (hypertension) Current Visit: Yes Status: Chronic Code(s): I10 - ESSENTIAL (PRIMARY) HYPE RTENSION (5) HLD (hyperlipidemia) Current Visit: Yes Status: Chronic Code(s): E78.5 - HYPERLIPIDEMIA, UN SPECIFIED (6) Anxiety and depression Current Visit: Yes Status: Chronic Code(s): F41.9 - ANXIETY DISORDER, UNSPECIFIED; F32.A - DEPRESSION, UNSPECIFIED (7) Irritable bowel syndrome (IBS) Current Visit: No Status: Chronic - Discharge Discharge Date: 03/25/24 Disposition: Home, Self-Care Condition: Stable Prescriptions: Continue Lisinopril/Hydrochlorothiazide [Lisinopril-Hctz 20-25 mg Tab] 1 each PO DAILY Tizanidine HCl 2 mg PO UD Lumateperone Tosylate [Caplyta] 42 mg PO HS Cefdinir [Omnicef 300 mg] 300 mg PO Q12H Rosuvastatin Calcium 10 mg PO DAILY Pantoprazole 20 mg [Protonix 20MG Tablet] 20 mg PO DAILY Clonidine HCl 0.1 mg [Clonidine 0.1 mg Tablet] 0.1 mg PO BID Discontinued Metoprolol Succinate 50 mg [Toprol Xl 50 MG] 50 mg PO DAILY Follow up with: AMERICO VILLAFANA DO [Primary Care Provider] -
[2024-03-25] MEDS ORDERED: NON-FORMULARY ITEM (Rosuvastatin Calcium [Rosuvastatin Calcium] 10 MG Tablet) PO SCH (10:00)
--- NOTE | 2024-03-25 10:00 | PCM.CONS ---
History of Present Illness - Date of Consult Date of Encounter: 03/25/24 Consulting Environmental Emergencies Planner: SHAWN SEYMOUR MD Requesting Provider: Attending Provider: ELOY NAPIER MD Primary Care Provider: PCP: AMERICO VILLAFANA, - Consult Narrative Reason for Consult: Chest Pain, Bradycardia, PVCs HPI: 49 yo man with systemic HTN, Hyperlipidemia, Tobacco Use, who comes in with co mplaints of an episode of mild 1-2/10 chest pain, nonradiating. There are some vague other symptoms - some dizziness, feeling lightheaded. He was at work about 2 days ago and felt these symptoms; sat down and checked his vitals and noted that his heart rate was in the 30s. Tells me that his heart rate is normally much higher. Over the last several weeks has been working with his PCP to get his blood pressure under better control and has been recently started on Metoprolol,and HCTZ. He does take his medicines as prescribed. Since arrival here he has not had any chest pain, lightheadedness, dizziness. Occasional PVCs on telemetry. His EKG shows sinus rhythm without any acute ischemic changes, though there is some nonspecific T wave flattening. His troponins and BNP are normal. At the time of my exam patient is with his . He does not use tobacco. Has a drink of alcohol after work. Lives with and teenage childrens. Works as a fabricator. cc:: The requesting physician will be sent a copy of the consult. Review of Systems - Review of Systems All systems: all other systems reviewed and were unremarkable (14 point ROS performed and negative except as mentioned in HPI.) - Past Medical History Past Medical History: Yes Neurological History: No Pertinent History ENT History: No Pertinent History Cardiac History: High Cholesterol, Hypertension Respiratory History: No Pertinent History Endocrine Medical History: No Pertinent History Musculoskelatal History: No Pertinent History GI Medical History: GERD, Irritable Bowel History: No Pertinent History Pyscho-Social History: Anxiety, Depression Male Reproductive Disorders: No Pertinent History - Past Surgical History Past Surgical History: No Neuro Surgical History: No Pertinent History Cardiac History: No Pertinent History Respiratory Surgery: No Pertinent History GI Surgical History: No Pertinent History Genitourinary Surgical Hx: No Pertinent History Musculskeletal Surgical Hx: No Pertinent History Male Surgical History: No Pertinent History Significant Family History: heart disease, cancer, stroke - Social History Smoking Status: Former smoker Exposure to second hand smoke: No Alcohol: Occasionally Drug Use: none - Social Determinants of Health Will the patient participate in the screening: Yes Do you worry about a steady place to live?: No Do you have any problems with any of the following?: No known problems In the past 12 months,have you had to go without utilities?: No Have you or anyone in your house had to go without enough: No Transportation Issues: No Has anyone in your support network made you feel unsafe?: No Does the patient want assistance with any of the above?: No Medications & Allergies Home Medications: Home Medication List Cefdinir [Omnicef 300 mg] 300 mg PO Q12H 03/24/24 [History Confirmed 03/24/24] Clonidine HCl 0.1 mg [Clonidine 0.1 mg Tablet] 0.1 mg PO BID 03/24/24 [History Confirmed 03/24/24] Lisinopril/Hydrochlorothiazide [Lisinopril-Hctz 20-25 mg Tab] 1 each PO DAILY 03/24/24 [History Confirmed 03/24/24] Lumateperone Tosylate [Caplyta] 42 mg PO HS 03/24/24 [History Confirmed 03/24/24] Pantoprazole 20 mg [Protonix 20MG Tablet] 20 mg PO DAILY 03/24/24 [History Confirmed 03/24/24] Rosuvastatin Calcium 10 mg PO DAILY 03/24/24 [History Confirmed 03/24/24] Tizanidine HCl 2 mg PO UD 03/24/24 [History Confirmed 03/24/24] Allergies/Adverse Reactions: Allergies Allergy/AdvReac Type Severity Reaction Status Date / Time amoxicillin Allergy Verified 03/24/24 16:02 Exam - Vitals Vital Signs: Vital Signs - 24 hr Temp Pulse Resp BP BP BP Pulse Ox 03/25/24 07:00 96.9 F 76 18 133/80 97 03/25/24 04:00 96.8 F 76 21 131/73 97 03/24/24 23:46 96.9 F 77 19 139/79 96 03/24/24 19:09 97.3 F 81 16 118/66 96 03/24/24 16:00 98.5 F 57 L 19 136/97 136/97 96 03/24/24 15:12 97 03/24/24 15:00 65 18 133/87 98 03/24/24 14:30 63 16 137/84 96 03/24/24 14:00 63 11 L 148/99 99 03/24/24 13:30 71 16 135/92 99 03/24/24 13:00 62 14 141/80 96 03/24/24 12:30 57 L 13 130/88 95 03/24/24 12:04 64 13 136/92 98 03/24/24 11:41 120/86 96 03/24/24 11:40 68 10 L 136/98 98 03/24/24 11:39 75 10 L 129/82 98 03/24/24 11:33 96.7 F 66 19 130/89 130/89 98 General:: alert and oriented x 4, no acute distress HEENT: EOMI, No JVD Cardiovascular Exam: regular rate/rhythm, normal heart sounds, normal peripheral pulses, No murmur Respiratory Exam: normal breath sounds, No chest tenderness SpO2: 97 Oxygen Delivery: Room Air Gastrointestinal/Abdomen Exam: soft, normal bowel sounds, No tenderness Skin Exam: normal color, warm, dry, No rash Extremity Exam: normal inspection, capillary refill < 2 sec, No edema Results Vital Signs: Vital Signs - 24 hr Temp Pulse Resp BP BP BP Pulse Ox 03/25/24 07:00 96.9 F 76 18 133/80 97 03/25/24 04:00 96.8 F 76 21 131/73 97 03/24/24 23:46 96.9 F 77 19 139/79 96 03/24/24 19:09 97.3 F 81 16 118/66 96 03/24/24 16:00 98.5 F 57 L 19 136/97 136/97 96 03/24/24 15:12 97 03/24/24 15:00 65 18 133/87 98 03/24/24 14:30 63 16 137/84 96 03/24/24 14:00 63 11 L 148/99 99 03/24/24 13:30 71 16 135/92 99 03/24/24 13:00 62 14 141/80 96 03/24/24 12:30 57 L 13 130/88 95 03/24/24 12:04 64 13 136/92 98 03/24/24 11:41 120/86 96 03/24/24 11:40 68 10 L 136/98 98 03/24/24 11:39 75 10 L 129/82 98 03/24/24 11:33 96.7 F 66 19 130/89 130/89 98 Pain Assessment - Last Documented Pain Intensity 0 Pain Scale Used 0-10 Pain Scale Intake and Output: Intake & Output 03/23/24 03/24/24 03/25/24 03/26/24 06:59 06:59 06:59 06:59 Intake Total 940 450 Balance 940 450 Weight 113.5 kg LAB: I have reviewed the Labs in [facility]. Troponins, BNP normal Radiology Exams: Radiology Procedures Category Date Time Status CHEST 1 VIEW (PORTABLE) Stat Exams 03/24/24 12:04 Completed Tracing 1 Attestation: I have reviewed this EKG and interpreted as documented below. EKG Narrative: No acute ischemic changes Sinus rhythm EKG Interpreted by Me: Sinus Rhythm Assessment & Plan (1) Chest pain Status: Resolved Qualifiers: Ischemic chest pain type: unspecified angina pectoris type Assessment & Plan: Symptoms seem atypical - not clearly exertional Ruled out for ACS - negative troponins, no EKG changes I think a stress test or Coronary CT angiogram would be reasonable to perform at some point. I explained to patient that it doesn't necessarily need to happen urgently and could be done realtively quickly as an OP; if his symptoms change or recur then may need to re-assess. Code(s): R07.9 - CHEST PAIN, UNSPECIFIED (2) HTN (hypertension) Status: Chronic Qualifiers: Hypertension type: primary hypertension Qualified Code(s): I10 - Essential (primary) hypertension Assessment & Plan: BP relatively well controlled. For now would stop metoprolol. Can continue to use his Lisinopril/HCTZ 20/25 mg. If BP starts to creep up can uptitrate to 40/25 mg daily Code(s): I10 - ESSENTIAL (PRIMARY) HYPERTENSION (3) Symptomatic bradycardia Status: Resolved Assessment & Plan: He has not had any symptoms or any real bradycardia since he has been here. Stop metoprolol for now. I did advise that he can also obtain an OTC EKG such as [employer] or [employer] He may also be referred as an OP for a Holter monitor Code(s): R00.1 - BRADYCARDIA, UNSPECIFIED - Encounter Encounter: "The entirety of this encounter was performed via Telemedicine using audio and visual "
== END 2024-03-25 11:25 | disposition home or self-care (01) ==
LOC: ED 11:16 → MED SURG 15:44
PROVIDERS: ADMIT Internal Medicine; ATTEND Internal Medicine
DX: R00.1 Bradycardia, unspecified (principal); R07.9 Chest pain, unspecified; E78.5 Hyperlipidemia, unspecified; I10 Essential (primary) hypertension; K21.9 Gastro-esophageal reflux disease without esophagitis; E66.9 Obesity, unspecified; R42 Dizziness and giddiness; F41.9 Anxiety disorder, unspecified; K58.9 Irritable bowel syndrome, unspecified; Z79.899 Other long term (current) drug therapy
CPT/HCPCS: 36415; 71045; 80053; 80307; 81001; 83735; 83880; 84132; 84443; 84484; 85025; 85379; 93005; 93041; 93268; 99285; Q3014; A9270-GY; G0378

== ENCOUNTER 2024-06-22 21:36 | Emergency (ER) | payer BC, OTHER ==
[2024-06-22 21:49] VITALS: TEMP 97.7; O2SAT 97
[2024-06-22] MEDS ORDERED: XYLOCAINE 1% HCL 20 ML MDV ONE (21:57)
[2024-06-22 22:06] VITALS: BP 145/95; PULSE 78; RESP 20
--- NOTE | 2024-06-22 22:17 | ERPHSYRPT ---
- History of Present Illness Source: patient Exam Limitations: no limitations Patient Subjective Stated Complaint: reports abscess to back that has increased in size the last 2 weeks. reports severe pain at this time. Triage Nursing Assessment: pt is aox3, pupils perrl, afebrile, resp easy and non labored, radial pulses strong and equal, cap refill < 3 seconds, skin pink warm dry. pt with an abscess to the lower back, skin is raised, firm and reddened skin is intact at this time, no drainge present. Physician History: Patient has a abscess or cyst on his back it has been there for years it got painful over the last couple days. It became a bit red to it does not really look infected he does not have any toxic or systemic symptoms. He came in because of the pain. Severity: moderate Allergies/Adverse Reactions: amoxicillin Allergy (Verified 03/24/24 16:02) Home Medications: Cefdinir [Omnicef 300 mg] 300 mg PO Q12H 03/24/24 [History] Clonidine HCl 0.1 mg [Clonidine 0.1 mg Tablet] 0.1 mg PO BID 03/24/24 [History] Lisinopril/Hydrochlorothiazide [Lisinopril-Hctz 20-25 mg Tab] 1 each PO DAILY 03/24/24 [History] Lumateperone Tosylate [Caplyta] 42 mg PO HS 03/24/24 [History] Pantoprazole 20 mg [Protonix 20MG Tablet] 20 mg PO DAILY 03/24/24 [History] Rosuvastatin Calcium 10 mg PO DAILY 03/24/24 [History] Tizanidine HCl 2 mg PO UD 03/24/24 [History] Hx Tetanus, Diphtheria Vaccination/Date Given: (unk) Hx Influenza Vaccination/Date Given: Yes Hx Pneumococcal Vaccination/Date Given: No Immunizations Up to Date: Yes Travel Risk - International Travel Have you traveled outside of the country in past 3 weeks: No - Emerging Infectious Disease Are you exhibiting symptoms associated with any current EIDs: No - Review of Systems Constitutional: No Symptoms Eyes: No Symptoms All Other Systems: Reviewed and Negative - Past Medical History Pertinent Past Medical History: Yes Neurological History: No Pertinent History ENT History: No Pertinent History Cardiac History: High Cholesterol, Hypertension Respiratory History: No Pertinent History Endocrine Medical History: No Pertinent History Musculoskeletal History: No Pertinent History GI Medical History: GERD, Irritable Bowel History: No Pertinent History Psycho-Social History: Anxiety, Depression Male Reproductive Disorders: No Pertinent History - Past Surgical History Past Surgical History: Yes Neuro Surgical History: No Pertinent History Cardiac: No Pertinent History Respiratory: No Pertinent History Gastrointestinal: No Pertinent History Genitourinary: No Pertinent History Musculoskeletal: No Pertinent History Male Surgical History: No Pertinent History Significant Family History: heart disease, cancer, stroke - Social History Smoking Status: Former smoker Exposure to second hand smoke: No Drug Use: none - Social Determinants of Health Will the patient participate in the screening: Unable to obtain - Nursing Vital Signs Nursing Vital Signs: Initial Vital Signs Temperature 97.7 F 06/22/24 21:41 Pulse Rate 79 06/22/24 21:41 Respiratory Rate 18 06/22/24 21:41 Blood Pressure 135/88 06/22/24 21:41 O2 Sat by Pulse Oximetry 97 06/22/24 21:41 Pain Scale Pain Intensity 10 - Physical Exam General Appearance: no apparent distress Eye Exam: PERRL/EOMI Lymphatic Exam: No adenopathy SpO2: 97 Comments: There is a large firm nodular-like lesion on his back. It is about 3 cm x 3 cm in the subcutaneous tissue. It was pretty firm.There is some surrounding erythema but it did not appear to be infected it look more like erythema from skin expansion 06/22/24 22:14 Ordered Tests: Medication Summary Discontinued Medications Generic Name Dose Route Start Last Admin Trade Name Freq PRN Reason Stop Dose Admin Lidocaine HCl Confirm 06/22/24 21:57 Lidocaine Hcl 1% 20 Ml Mdv 20 Ml Ml Administered 06/22/24 21:58 Dose 10 ml .ROUTE .4D [employer] - Progress Progress: unchanged Progress Note: Procedure note the area was anesthetized. It was thoroughly cleaned with alcohol.A incision was made in an attempt to debride it was done. It was very loculated. There was really no abscess like characteristics. It was all scar tissue.There is no fluid to be expressed. I am going to start the patient onBactrim and have him use frequent warm compresses and follow-up with the general surgeon 06/22/24 22:15 06/22/24 22:16 - Departure Departure Disposition: Home Clinical Impression: Sebaceous cyst Condition: Stable Critical Care Time: No Referrals: [facility], [Primary Care Provider, [facility]] - Follow up/PCP as directed Instructions: Epidermal Cyst (DC)
[2024-06-22] MEDS ORDERED: BACTRIM DS TABLET PO ONE (22:22)
[2024-06-22] MEDS ORDERED: NORCO 5/325 MG ONE (22:23)
[2024-06-22] MEDS: NORCO 5/325 MG PO ONE (22:25)
[2024-06-22] MEDS: BACTRIM DS TABLET PO STA (22:26)
== END 2024-06-22 22:40 | disposition home or self-care (01) ==
LOC: ED 21:36
DX: L72.3 Sebaceous cyst (principal); Z79.899 Other long term (current) drug therapy; Z79.891 Long term (current) use of opiate analgesic
CPT/HCPCS: 99283; A9270-GY